=== PATIENT | male | born 1960 | race Caucasian/White ===

== ENCOUNTER 2021-04-06 13:28 | Inpatient (IN) | payer OTHER, SELFPAY ==
[2021-04-06] VITALS (15 sets, daily range): BP systolic 123–158; BP diastolic 66–88; PULSE 78–106; RESP 13–27; TEMP 36.1–36.6; O2SAT 94–100; BMI 31.5
--- NOTE | ~2021-04-06 | CT_ITS ---
EXAMINATION:CT chest high resolution [facility] DATE: 04/07/2021 09:11 INDICATION: Chronic cough. Chronic obstructive pulmonary disease. TECHNIQUE: Computed tomography (CT) of the chest was performed without intravenous contrast. Automate d exposure control and iterative reconstruction technique were employed. The dose-length product (DLP ) was 456.07 mGy-cm. COMPARISON: Chest CT 12/30/2008 FINDINGS: There is severe emphysema. There is mild atelectasis bilaterally. Calcified pulmonary nodul es and calcified hilar and mediastinal lymph nodes are consistent with old granulomatous disease. No pleural effusion. The heart size is normal. No pericardial effusion. Calcifications in the spleen are consistent with old granulomatous disease. There is mild thoracic spondylosis. There is mild chronic anterior wedging of T7 vertebral body. IMPRESSION: 1. Severe emphysema. Reviewed, dictated and finalized at location A. IMPRESSION: 1. Severe emphysema.
--- NOTE | ~2021-04-06 | XR_ITS ---
XR chest 2V DATE: 04/06/2021 15:43 INDICATION: Shortness of breath. History of lung biopsy. COPD. TECHNIQUE: PA and lateral views COMPARISON: 08/24/2010 PA and lateral chest FINDINGS: Bilateral hyperinflation with flattening the diaphragm, consistent with COPD. Chronic mild bibasilar scarring. No pulmonary infiltrate or consolidation, pleural effusion or pulmonary vascular congestion or pneumothorax. Normal heart size. Aortic arch calcification. No hilar or mediastinal enlargement. Prominence of the central pulmonary artery suggests pulmonary hypertension. Diffuse osteopenia. IMPRESSION: COPD and suspected pulmonary hypertension No active pulmonary disease Diffuse osteopenia Reviewed, dictated and finalized at location B.
--- NOTE | 2021-04-06 13:36 | ECG_ITS ---
Measurements Intervals [place] Rate: 67 P: 55 NC: 117 QRS: 65 QRSD: 94 T: 89 QT: 356 QTc: 377 Interpretive Statements SINUS RHYTHM WITH SHORT NC INTERVAL BASELINE ARTIFACT- I, II, III, AVR, AVL, AVF, V1-V6 BORDERLINE ECG Electronically Signed On 04-06-2021 14:11:14 CDT by Kwame Mccullough D.O.
--- NOTE | 2021-04-06 13:36 | ED.SOB ---
HPI - SOB/Dyspnea General Chief Complaint: Shortness of Breath/Dyspnea Stated Complaint: difficulty breathing Time Seen by Provider: 04/06/21 13:36 History of Present Illness HPI Narrative: 60 yo male w/ h/o COPD, HTN presents to the ED for SOB. He has reportedly been SOB for several months. This is associated with Severe TENORIO. He has a chronic cough as well. He sees a spa director. She has prescribed steroids and antibiotics without improvement. No significant change recently. No chest pain, fever, leg swelling. Related Data Home Medications Medication Instructions Recorded Confirmed albuterol sulfate 1.25 mg/3 mL See Rx Instructions .ROUTE .COMPLEX 02/24/20 09/07/20 solution for nebulization magnesium 250 mg tablet See Rx Instructions .ROUTE .COMPLEX 02/24/20 09/07/20 cetirizine [Zyrtec] PO 07/14/20 09/07/20 guaifenesin 600 mg tablet, 600 mg PO BID 07/14/20 09/07/20 extended release 12 hr valsartan 160 mg tablet 160 mg PO DAILY 07/14/20 09/07/20 zinc PO 07/14/20 09/07/20 Allergies Allergy/AdvReac Type Severity Reaction Status Date / Time levofloxacin Allergy Intermediate RASH Verified 09/07/20 10:56 Review of Systems Review of Systems: All systems reviewed & are unremarkable except as noted in HPI and below Constitutional: Constitutional: Denies chills and Denies fever(s) ENT: Reports system reviewed and no additional complaints, except as documented Cardiovascular: Cardiovascular: Denies chest pain Respiratory: Respiratory: Reports cough, Reports dyspnea and Reports wheezing Gastrointestinal: Gastrointestinal: Denies abdominal pain and Denies nausea Genitourinary: Genitourinary: Reports no additional male genitourinary complaints Musculoskeletal: Musculoskeletal: Denies back pain Neurologic: Reports system reviewed and no additional complaints, except as documented [facility] Past Medical History Medical History (Updated 04/06/21 @ 17:25 by Eddie Roa MD) COPD (chronic obstructive pulmonary disease) High cholesterol HTN (hypertension) Hyperglycemia Moderate ankle sprain Right ankle pain Seasonal allergies Shortness of breath Sleep apnea Vision abnormalities Family History Family History Sibling Family history of coronary artery disease Mother Family history of cardiovascular disease Family history of heart disease in male family member before age 55 Social History Social History Smoking status: Never smoker Smokeless tobacco user: chewing tobacco Additional smoking assessment comments: 1 can of chewing tobacco per week for 4 years Alcohol intake: never Gender identity (if verbalized by the patient): Male Exam Const: General: alert Orientation/consciousness: patient oriented x3 Other: mild respiratory distress HENMT: Head: normal to inspection Neck: Neck: normal visual inspection Chest: Chest palpation & inspection: normal inspection of the chest and no tenderness Resp: Effort & Inspection: labored and tachypneic Auscultation: wheezes and diminished lung sounds Cardio: Rate: regular rate Rhythm: regular rhythm GI: Inspection: distended GI Palp: Yes Soft to palpation and No Tenderness to palpation present (GI) Skin: General skin exam: normal color Neuro: General: patient oriented x3, moves all extremities and CN's II-XI intact bilaterally Extrem: General: no edema Course Vital Signs Vital signs: Vital Signs Temperature 36.6 C 04/06/21 13:45 Pulse Rate 85 04/06/21 13:45 Respiratory Rate 23 H 04/06/21 13:45 Blood Pressure 136/88 04/06/21 13:45 Pulse Oximetry 96 04/06/21 13:45 Temperature 36.6 C 04/06/21 13:45 Pulse Rate 78 04/06/21 16:19 Respiratory Rate 22 H 04/06/21 16:19 Blood Pressure 123/73 04/06/21 16:19 Pulse Oximetry 95 04/06/21 16:19 MDM - SOB/Dyspnea MDM Narrative Medical decision
[2021-04-06 13:59] LABS: Basophils Percent Auto 0.1 % (0.2-1.2); Eosinophils Absolute Auto 0.2 K/mm3 (0-0.3); Eosinophils Percent Auto 1.8 % (0-4.4); Hematocrit 48.5 % (42.0-52.0); Hemoglobin 16.2 g/dL (14.0-18.0); Immature Granulocyte Absolute 0.05 K/mm3 (0.00-0.031); Immature Granulocyte Percent A 0.5 % (0-0.5); Lymphocytes Absolute Auto 1.44 K/mm3 (0.9-3.2); Lymphocytes Percent Auto 14.9 % (18.3-44.2); Mean Corpuscular HGB Conc 33.4 g/dl (32-36); Mean Corpuscular Volume 89.8 fl (80-100); Mean Platelet Volume 10.6 fl (7.4-10.4); Monocytes Absolute Auto 0.7 K/mm3 (0.1-0.6); Monocytes Percent Auto 7.5 % (2.6-8.5); Neutrophils Absolute Auto 7.3 K/mm3 (1.3-6.7); Neutrophils Percent Auto 75.2 % (45.5-73.1); Platelet Count Result 151 k/mm3 (150-375); Red Cell Distribution Width 13.3 % (11.5-14.5); White Blood Count 9.7 K/mm3 (4.5-10.0)
[2021-04-06 14:13] LABS: Alanine Aminotransferase 31 U/L (4-50); Albumin Level 4.4 g/dL (3.5-5.1); Alkaline Phosphatase 96 U/L (38-126); Anion Gap 7 mmol/L (8-16); Aspartate Amino Transferase 26 U/L (17-59); Bilirubin,Total 1.1 mg/dL (0.2-1.3); Blood Urea Nitrogen 18 mg/dL (9-20); Calcium 9.8 mg/dL (8.4-10.2); Carbon Dioxide 25 mmol/L (22-30); Chloride 104 mmol/L (98-107); Estimated CRCL calculation 84 ml/min; Estimated Glomerular Filt Rate > 60; Glucose 102 mg/dL (75-110); Potassium 4.5 mmol/L (3.4-5.0); Sodium 136 mmol/L (137-145)
[2021-04-06 14:14] LABS: Anion Gap 7 mmol/L (8-16); Blood Urea Nitrogen 18 mg/dL (9-20); Calcium 9.7 mg/dL (8.4-10.2); Carbon Dioxide 26 mmol/L (22-30); Chloride 104 mmol/L (98-107); Estimated CRCL calculation 84 ml/min; Estimated Glomerular Filt Rate > 60; Glucose 103 mg/dL (75-110); Potassium 4.5 mmol/L (3.4-5.0); Sodium 137 mmol/L (137-145)
[2021-04-06] MEDS: DEXAMETHASONE SOD PHOS INJ 4 MG/ML VIAL 10 MG IV PUSH (14:17)
[2021-04-06] MEDS: ALBUTEROL SULFATE NEB 2.5 MG/0.5 ML INH 10 MG INHALATION (14:20)
[2021-04-06] MEDS: IPRATROPIUM BR 0.02% INH SOLN 0.5 MG/2.5 ML VIAL 1 MG INHALATION (14:20)
[2021-04-06 14:22] LABS: Alveolar/Arterial O2 Gradient 36.9 mmHg; Base Excess ABG 1.8 mEq/l (+/-2.0); Fractional Inspired Oxygen 21 %; HCO3 ABG 25.8 mEq/l (22.0-26.0); Oxygen Content ABG 20.9 %vol (16.0-22.0); Oxygen Saturation ABG 94.1 % (95.0-100.0); Oxyhemoglobin 92.6 % THb (90.0-100.0); PCO2 ABG 38.4 mmHg (35.0-45.0); PO2 ABG 66.8 mmHg (80.0-100.0); PO2 FiO2 Ratio Arterial Blood 3.18 %; Total Hemoglobin 16.1 g/dL (12.0-18.0); pH ABG 7.445 (7.350-7.450)
[2021-04-06 14:22] LABS: NT Pro B Type Natriuretic Pept 63 pg/mL (5-100)
[2021-04-06 14:31] LABS: Device ROOM AIR; Site Drawn RIGHT BRACHIAL
--- NOTE | 2021-04-06 17:30 | PM.IMHP ---
H&P: HPI History of Present Illness Date/Time: 04/06/21 17:30 Chief Complaint: Shortness of breath. Narrative: This is a pleasant 60-year-old male with COPD, hypertension, and hyperlipidemia to the emergency department earlier today via private vehicle from home with complaints of shortness of breath. The patient is a former smoker, up to 2 packs of cigarettes per day for about 25 years before quitting in the . He was diagnosed with COPD within the last couple of years and is followed by Kaley Salazar NP. He has not been satisfied with his quality of life over the past couple of years due to dyspnea and chronic cough and it is to the point where he sometimes has to stop to catch his breath even while walking around the home. He also has a chronic cough which tends to keep him up at night. More recently he has been on oral steroids and antibiotics for worsening symptoms, unfortunately without improvement despite compliance with all of his therapies. He denies fever, chills, sweats, cold and flu symptoms, chest pain, pleuritic pain, orthopnea, PND, lower extremity edema, nausea, vomiting, and diarrhea. No history of cardiac disease or venous thromboembolism. He denies history of sleep apnea however states that he is frequently fatigued in falls asleep at the drop of a hat. Review of Systems Review of Systems: Narrative: Twelve systems were reviewed with pertinent positives and negatives as per HPI. No sick contacts. He denies exposure to those positive for COVID-19. He denies sinus congestion, rhinorrhea, otalgia, odynophagia, and postnasal drip. No GERD symptoms. He denies dysphagia and concerns for aspiration. Cough is nonproductive. Except as documented, all other systems were reviewed and are negative. [facility] Past Medical History Medical History Chronic obstructive pulmonary disease Diverticulitis Status post partial colon resection. Hyperlipidemia Hypertension Seasonal allergies Tobacco use Surgical History Surgical History (Updated 04/06/21 @ 21:55 by Marianne Aguilar PA-C) History of partial colectomy Due to recurrent diverticulitis. Family History Family History Sibling Family history of coronary artery disease Mother Family history of cardiovascular disease Family history of heart disease in male family member before age 55 Social History Social History (Updated 04/06/21 @ 21:58 by Marianne Aguilar PA-C) Social History: The patient lives in [place] with his . They have 3 children. Previously worked at [employer] and reports exposure to silica. 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 He smoked about 2 packs of cigarettes a day for nearly 25 years and quit in the . He has been using chewing tobacco for the last 5 years or so, 1 can lasting up to a week at a time. No alcohol or illicit substance abuse. He designates his Tina as his surrogate decision maker and he wishes to be a full code. Living arrangements: with family Occupation/Education: occupation Meds Home Medications and Allergies Home Medications Medication Instructions Recorded Confirmed Type albuterol sulfate 1.25 mg/3 mL See Rx Instructions .ROUTE .COMPLEX 02/24/20 04/06/21 History solution for nebulization magnesium 250 mg tablet 500 mg PO HS 02/24/20 04/06/21 History cetirizine [Zyrtec] 10 mg PO DAILY 07/14/20 04/06/21 History guaifenesin 600 mg tablet, 1,200 mg PO BID 07/14/20 04/06/21 History extended release 12 hr zinc 50 mg PO DAILY 07/14/20 04/06/21 History fluticasone 250 mcg-salmeterol 50 1 inh INHALATION .COMPLEX #180 ea 09/21/20 04/06/21 Rx mcg/dose blistr powdr for inhalation losartan 100 mg tablet 100 mg PO DAILY #90 tablet 10/19/20 04/06/21 Rx albuterol sulfate 90 mcg/actuation 2 puff INHALATION Q4-6H PRN #22.5 g 11/25/20 04/06/21 Rx aerosol inhaler ergocalciferol (vitamin D2) 1,250 See Rx Instructions .ROUTE 05
[2021-04-06] MEDS: methylPREDNISolone SOD SUCC 125 MG VIAL 60 MG IV PUSH ×2 (18:30→23:03)
--- NOTE | 2021-04-06 19:29 | ECG_ITS ---
Measurements Intervals [place] Rate: 87 P: 83 LA: 134 QRS: 67 QRSD: 94 T: 86 QT: 344 QTc: 415 Interpretive Statements SINUS RHYTHM BORDERLINE T WAVE ABNORMALITY- HIGH LATERAL LEADS BASELINE ARTIFACT- I, II, III, AVR, AVL, AVF, V1, V3-V6 BORDERLINE ECG Electronically Signed On 04-06-2021 20:09:15 CDT by Kwame Mccullough D.O.
--- NOTE | 2021-04-06 19:41 | PC.NURSE ---
Pt reported Left sided chest pressure that comes and goes like spasms , per vorb Dr Roa repeat EKG was ordered and completed. Pt placed on 2 L NC O2 for comfort. Per EDP, okay for pt to go to room 347 after EKG reviewed.
--- NOTE | 2021-04-06 19:45 | ADMGEN ---
This patient, Deyns Mosqueda, was admitted to Medical Room 347-. Patient/family oriented to hospital policies and general routines including ID bracelet, bed and alarms, visiting hours, pain management, procedures, bathroom and other care routines, personal items, smoking policy, room service/diet, and visiting hours. Information on how to activate the Rapid Response Team has been discussed. Patient/Family are encouraged to report perceived risks to care and to ask questions if they do not understand what they are told or what they should do.
[2021-04-06] MEDS: IPRATROPIUM BR 0.02% INH SOLN 0.5 MG/2.5 ML VIAL INHALATION (21:06)
[2021-04-06] MEDS: ALBUTEROL SULFATE NEB 2.5 MG/0.5 ML INH 5 MG INHALATION (21:06)
[2021-04-06] MEDS: PANTOPRAZOLE 40 MG TABLET PO (23:03)
[2021-04-07] VITALS (16 sets, daily range): BP systolic 150–160; BP diastolic 77–90; PULSE 72–110; RESP 20–24; TEMP 36.2–36.4; O2SAT 92–97
--- NOTE | 2021-04-07 03:58 | PCRCNOTE ---
0200 breathing treatment was omitted due to patient being on an apnea link.
[2021-04-07] MEDS: methylPREDNISolone SOD SUCC 125 MG VIAL 60 MG IV PUSH ×4 (05:17→23:29)
[2021-04-07] MEDS: LOSARTAN POTASSIUM 100 MG TABLET PO (08:36)
[2021-04-07] MEDS: ZINC SULFATE 220 MG CAPSULE PO (08:36)
[2021-04-07] MEDS: LORATADINE 10 MG TABLET PO (08:37)
[2021-04-07] MEDS: guaiFENesin 12 HR 600 MG TABCR 1200 MG PO ×2 (08:37→20:36)
[2021-04-07] MEDS: PANTOPRAZOLE 40 MG TABLET PO (08:39)
[2021-04-07] MEDS: ENOXAPARIN 40 MG/0.4 ML SYRINGE SUB-Q (08:45)
[2021-04-07] MEDS: FLUTICASONE PROPIONATE 0.05% NA SPR 16 GM BTL (*BKC) 1 SPRAY NASAL ×2 (09:21→20:35)
[2021-04-07] MEDS: IPRATROPIUM BR 0.02% INH SOLN 0.5 MG/2.5 ML VIAL INHALATION ×3 (09:24→21:03)
[2021-04-07] MEDS: UMECLIDINIUM BROMIDE 62.5 MCG ELLIPTA 1 PUFF INHALATION (09:24)
[2021-04-07] MEDS: ALBUTEROL SULFATE NEB 2.5 MG/0.5 ML INH 5 MG INHALATION ×3 (09:24→21:02)
[2021-04-07] MEDS: FLUTICASONE/SALMETEROL 115-21 MCG INHALER 1 PUFF 2 PUFF INHALATION ×2 (11:38→21:15)
--- NOTE | 2021-04-07 12:24 | PM.IMPN ---
Progress Note: A&P Assessment and Plan (1) COPD exacerbation: Code(s): J44.1 - Chronic obstructive pulmonary disease with (acute) exacerbation Status: Acute Assessment and Plan: Pt continues to be SOB with TENORIO -No cardiac symptoms currently -CT showed severe emphysema; he sees Kaley Salazar FRONT OFFICE SECRETARY outpt -Will continue solumedrol 60mg Q6 as well atrovent, albuterol, advair, and incruse -He states he used to be around chemicals and used to smoke but quit. He was also around 2nd hand smoke as a child. He states he has no genetic abnormalities that cause COPD according to work up from years ago -If he has not improved by tomorrow, may consider consulting pulmonology (2) Shortness of breath: Code(s): R06.02 - Shortness of breath Status: Acute Assessment and Plan: As above (3) Chronic cough: Code(s): R05 - Cough Status: Acute Assessment and Plan: due to above (4) Hypertension: Code(s): I10 - Essential (primary) hypertension Status: Acute Assessment and Plan: Last bp 160/90 prior to home medications tis morning -Continue losartan -Monitor trends and adjust as needed (5) Hyperlipidemia: Code(s): E78.5 - Hyperlipidemia, unspecified Status: Acute Assessment and Plan: Continue simvastatin Time Spent With Patient Time with patient: 25 - 35 minutes Subjective Date/time seen: 04/07/21 12:24 Interval history: Pt is a 60 y/o male here for COPD exacerbation. Pt was seen today and is feeling a bit better but is still having TENORIO and SOB at rest. He has a dry cough occasionally. He has no CP. He had a cardiac cath in 1999 and a stress test in the last couple of years . He denies nausea, vomiting, fevers, chills, abdominal pain, or leg swelling. Pt sees kaley MONTES for his COPD. He has seen others in the past and has had a bunch of work up that showed this wasn't inherited . Review of Systems Review of Systems: All systems reviewed & are unremarkable except as noted in HPI and below Exam Narrative: Exam Narrative: General: Well developed well nourished patient in NAD HEENT: normocephalic Neck: supple Neuro: Alert and oriented x4 CV:RRR. Tele without abnormal reviews Resp:Decreased breath sounds with no wheezing bilaterally. prolonged expiratory stage with elevated RR Abd: Soft, non distended. No pain to palpation. Positive bowel sounds Extremities: No swelling, erythema, or pain to palpation. Objective Data Vital Signs Vital Signs: Vital Signs - 24 hr 04/06/21 13:45 04/06/21 14:01 04/06/21 14:20 Temperature 97.9 F Pulse Rate 82 78 Respiratory Rate 23 H 22 H Blood Pressure 136/88 Pulse Oximetry 96 96 04/06/21 14:27 04/06/21 15:24 04/06/21 16:19 Temperature Pulse Rate 80 85 78 Respiratory Rate 13 24 H 22 H Blood Pressure 143/88 H 150/81 H 123/73 Pulse Oximetry 100 97 95 04/06/21 18:31 04/06/21 19:30 04/06/21 19:39 Temperature Pulse Rate 78 97 89 Respiratory Rate 22 H 24 H 26 H Blood Pressure 123/73 145/66 H 146/81 H Pulse Oximetry 95 96 97 04/06/21 20:00 04/06/21 21:06 04/06/21 21:13 Temperature Pulse Rate 91 91 Respiratory Rate 22 H 18 Blood Pressure Pulse Oximetry 96 95 04/06/21 21:15 04/06/21 21:44 04/06/21 23:30 Temperature 97 F L Pulse Rate 88 103 H 106 H Respiratory Rate 20 22 H Blood Pressure 158/80 H Pulse Oximetry 94 94 04/07/21 00:00 04/07/21 04:00 04/07/21 06:27 Temperature 97.3 F L Pulse Rate 99 72 92 Respiratory Rate 20 Blood Pressure Pulse Oximetry 96 04/07/21 06:52 04/07/21 08:00 04/07/21 08:39 Temperature Pulse Rate 79 Respiratory Rate 20 Blood Pressure 160/90 H Pulse Oximetry 92 04/07/21 09:25 04/07/21 09:35 Temperature Pulse Rate 95 88 Respiratory Rate 20 20 Blood Pressure Pulse Oximetry 92 Intake/Output Intake/Output: Intake & Output 04/04/21 04/05/21 04/06/21
[2021-04-07] MEDS: SIMVASTATIN 10 MG TABLET PO (20:36)
[2021-04-07] MEDS: MAGNESIUM OXIDE 400 MG TABLET PO (20:36)
--- NOTE | 2021-04-07 22:05 | ECHO_ITS ---
Patient Info Name: Denys Mosqueda Age: 60 years : 1960 Gender: Male Ht: 68 in Wt: 207 lbs BSA: 2.15 m2 HR: 100 bpm BP: 150 / 80 mmHg Heart Rhythm: Sinus Rhythm, Tachycardia Technical Quality: Good Exam Date: 04/07/2021 11:08 AM Exam Location: [facility] Pulmonary Patient Status: Inpatient Admit Date: 04/06/2021 Staff Ordering Physician: Marianne Aguilar PA-C Drywall Finisher Foreman: Hardeep Cerna, ERIC, RT Attending Provider: Mikayla Bui MD Referring Physician: Lauren EDWARDS; Exam Type: CA echo doppler w bubble study Study Info Indications I10 - Essential (primary) hypertension R06.02 - Shortness of breath Strain analysis performed. Complete two-dimensional, color flow and Doppler transthoracic echocardiogram is performed with agitated saline. Summary 1. Left ventricular chamber dimension is normal. 2. Left ventricular systolic function is normal, estimated at >70%. 3. There is mildly increased left ventricular wall thickness. 4. The left ventricular diastolic function is grade I diastolic dysfunction. 5. Right atrial chamber dimension is mildly enlarged. 6. There is no aortic valve stenosis. 7. No evidence of interatrial shunt with injection of agitated saline with or without Valsalva. Left Ventricle Left ventricular chamber dimension is normal. Left ventricular systolic function is normal, estimated at >70%. There is mildly increased left ventricular wall thickness. The left ventricular diastolic function is grade I diastolic dysfunction. Global longitudinal strain is normal at -19 %. Right Ventricle Right ventricular chamber dimension is normal. Right ventricular systolic function is normal. Left Atria Left atrial chamber dimension is normal. Right Atria Right atrial chamber dimension is mildly enlarged. Atrial Septum No evidence of interatrial shunt with injection of agitated saline with or without Valsalva. Aortic Valve The aortic valve is not well visualized. There is no aortic valve stenosis. There is no aortic valve regurgitation. Pulmonic Valve The pulmonic valve is not well visualized. Mitral Valve The mitral valve has normal leaflets. There is trace mitral valve regurgitation. Tricuspid Valve The tricuspid valve leaflets are normal. There is trace tricuspid valve regurgitation. Unable to estimate PA systolic pressure due to poor spectral resolution of tricuspid regurgitant jet velocity. Pericardium/Pleural The pericardium appears normal. There is trivial pericardial effusion. Inferior Vena Cava Normal inferior vena cava with >50% collapse upon inspiration consistent with normal right atrial pressure, 5 mmHg. Aorta The aortic root size at the sinus of Valsalva is normal. There is mild aortic atherosclerosis. Left Ventricular Outflow Tract Name Value Normal LVOT 2D LVOT Diameter 1.9 cm LVOT Doppler LVOT Peak Gradient 7 mmHg LVOT Mean Gradient 4 mmHg LVOT VTI 26 cm LVOT VTI/AV VTI Ratio 0.9 LVOT Stroke Vo
[2021-04-08] VITALS (12 sets, daily range): BP systolic 128–143; BP diastolic 61–82; PULSE 80–103; RESP 14–22; TEMP 36.3–36.7; O2SAT 95–97
[2021-04-08] MEDS: IPRATROPIUM BR 0.02% INH SOLN 0.5 MG/2.5 ML VIAL INHALATION ×4 (01:43→21:38)
[2021-04-08] MEDS: ALBUTEROL SULFATE NEB 2.5 MG/0.5 ML INH 5 MG INHALATION ×2 (01:43→07:26)
[2021-04-08] MEDS: methylPREDNISolone SOD SUCC 125 MG VIAL 60 MG IV PUSH (05:15)
[2021-04-08 05:55] LABS: Hematocrit 45.2 % (42.0-52.0); Hemoglobin 14.9 g/dL (14.0-18.0); Mean Corpuscular Volume 90.9 fl (80-100); Mean Platelet Volume 10.5 fl (7.4-10.4); Platelet Count Result 164 k/mm3 (150-375); Red Blood Count 4.97 M/mm3 (4.6-6.20); Red Cell Distribution Width 13.4 % (11.5-14.5); White Blood Count 13.2 K/mm3 (4.5-10.0)
[2021-04-08 06:07] LABS: Anion Gap 9 mmol/L (8-16); Blood Urea Nitrogen 21 mg/dL (9-20); Calcium 9.3 mg/dL (8.4-10.2); Carbon Dioxide 25 mmol/L (22-30); Chloride 102 mmol/L (98-107); Estimated CRCL calculation 84 ml/min; Estimated Glomerular Filt Rate > 60; Glucose 155 mg/dL (75-110); Potassium 4.7 mmol/L (3.4-5.0); Sodium 136 mmol/L (137-145)
[2021-04-08] MEDS: FLUTICASONE/SALMETEROL 115-21 MCG INHALER 1 PUFF 2 PUFF INHALATION (07:27)
[2021-04-08] MEDS: UMECLIDINIUM BROMIDE 62.5 MCG ELLIPTA 1 PUFF INHALATION (07:27)
[2021-04-08] MEDS: guaiFENesin 12 HR 600 MG TABCR 1200 MG PO ×2 (08:41→20:38)
[2021-04-08] MEDS: LOSARTAN POTASSIUM 100 MG TABLET PO (08:41)
[2021-04-08] MEDS: FLUTICASONE PROPIONATE 0.05% NA SPR 16 GM BTL (*BKC) 1 SPRAY NASAL ×2 (08:41→20:37)
[2021-04-08] MEDS: ZINC SULFATE 220 MG CAPSULE PO (08:41)
[2021-04-08] MEDS: LORATADINE 10 MG TABLET PO (08:41)
[2021-04-08] MEDS: ERGOCALCIFEROL 50,000 UNIT CAPSULE 50000 UNITS BY MOUTH (08:41)
[2021-04-08] MEDS: PANTOPRAZOLE 40 MG TABLET PO (08:41)
[2021-04-08] MEDS: ENOXAPARIN 40 MG/0.4 ML SYRINGE SUB-Q (08:41)
[2021-04-08] MEDS: ALPRAZolam (*CRX) 0.5 MG TABLET PO ×2 (10:15→16:33)
--- NOTE | 2021-04-08 11:29 | PM.IMPN ---
Progress Note: A&P Assessment and Plan (1) COPD exacerbation: Code(s): J44.1 - Chronic obstructive pulmonary disease with (acute) exacerbation Status: Acute Assessment and Plan: Pt continues to be SOB with TENORIO -No cardiac symptoms currently -CT showed severe emphysema; he sees Kaley Salazar CARDIOVASCULAR PHYSICIAN ASSISTANT outpt -Will continue solumedrol 60mg Q6 as well atrovent, albuterol, advair, and Incruse -He states he used to be around chemicals and used to smoke but quit. He was also around 2nd hand smoke as a child. He states he has no genetic abnormalities that cause COPD according to work up from years ago -pulmonology consulted, records requested -pt now off o2 (2) Shortness of breath: Code(s): R06.02 - Shortness of breath Status: Acute Assessment and Plan: As above -May consider outpt stress test -Echo:1. Left ventricular chamber dimension is normal. 2. Left ventricular systolic function is normal, estimated at >70%. 3. There is mildly increased left ventricular wall thickness. 4. The left ventricular diastolic function is grade I diastolic dysfunction. 5. Right atrial chamber dimension is mildly enlarged. 6. There is no aortic valve stenosis. 7. No evidence of interatrial shunt with injection of agitated saline with or without Valsalva. -Pt did have a stress in the test but it was a few years back. (3) Chronic cough: Code(s): R05 - Cough Status: Acute Assessment and Plan: due to above (4) Hypertension: Code(s): I10 - Essential (primary) hypertension Status: Acute Assessment and Plan: Last bp 128/61 -Continue losartan -Monitor trends and adjust as needed (5) Hyperlipidemia: Code(s): E78.5 - Hyperlipidemia, unspecified Status: Acute Assessment and Plan: Continue simvastatin Subjective Date/time seen: 04/08/21 11:29 Interval history: Pt is a 60 y/o male here for COPD exacerbation. Pt was seen today and is feeling a bit better but is still having TENORIO and SOB at rest. He says his o2 is >88% but that he can't 'get enough oxygen in'. He has a dry cough occasionally. He has no CP. He had a cardiac cath in 1999 and a stress test in the last couple of years . He denies nausea, vomiting, fevers, chills, abdominal pain, or leg swelling. Pt sees kaley CARDIOVASCULAR PHYSICIAN ASSISTANT for his COPD. He has seen others in the past and has had a bunch of work up that showed this wasn't inherited . He did not think the xanax helped. Exam Narrative: Exam Narrative: General: Well developed well nourished patient in NAD HEENT: normocephalic Neck: supple Neuro: Alert and oriented x4 CV:RRR Resp:Decreased breath sounds with no wheezing bilaterally. prolonged expiratory stage with elevated RR Abd: Soft, non distended. No pain to palpation. Positive bowel sounds Extremities: No swelling, erythema, or pain to palpation. Objective Data Vital Signs Vital Signs: Vital Signs - 24 hr 04/07/21 12:00 04/07/21 14:00 04/07/21 14:27 Temperature 97.5 F L Pulse Rate 106 H 110 H 102 H Respiratory Rate 24 H 24 H Blood Pressure 150/79 H Pulse Oximetry 97 04/07/21 14:37 04/07/21 20:30 04/07/21 20:49 Temperature 97.1 F L Pulse Rate 102 H 81 Respiratory Rate 24 H 20 Blood Pressure 151/77 H Pulse Oximetry 95 94 04/07/21 21:05 04/07/21 21:18 04/08/21 01:44 Temperature Pulse Rate 80 88 80 Respiratory Rate 22 H 20 22 H Blood Pressure Pulse Oximetry 95 04/08/21 05:12 04/08/21 07:28 04/08/21 07:31 Temperature 97.4 F L Pulse Rate 99 86 Respiratory Rate 22 H 22 H Blood Pressure 128/61 Pulse Oximetry 97 95 Intake/Output Intake/Output: Intake & Output 04/05/21 04/06/21 04/07/21 04/08/21 23:59 23:59 23:59 23:59 Intake Total 2620 490 Output Total 350 3700 400 Balance -350 -1080 90 Meds/Results Medications: Active Medications Generic Name Dose Route Start Last Admin Trade Name Freq PRN
--- NOTE | 2021-04-08 12:29 | PM.CNPUL ---
Assessment and Plan Assessment and plan (1) COPD exacerbation: Code(s): J44.1 - Chronic obstructive pulmonary disease with (acute) exacerbation Status: Acute Assessment and Plan: While the patient is appearing to have a COPD exacerbation he is not overtly bronchospastic. His ongoing shortness of breath may be due to multiple things including debilitation and significant weight gain. He has gained about 30 lb if not more according to his just in the past 2 years and someone with severe COPD this can cause significant shortness of breath debilitation. There also appears to be a significant anxiety component and I am not sure if this is due to the presence of systemic steroids or due to an underlying condition. My recommendations are the following - discontinue systemic steroids - start Pulmicort 1 mg nebulized q.12 hours - continue ipratropium 0.5 mg q.6 hours - change albuterol to 2.5 mg q.6 hours p.r.n. - start Xanax scheduled 0.5 mg b.i.d. and titrate up to 1 mg b.i.d. as tolerated. -start benzotate 200 mg p.o. t.i.d. for cough suppression - needs to restart pulmonary rehabilitation - encouraged significant weight gain which will be very helpful to improving his symptoms. - Consider switching his inhaler therapy to all nebulized therapy upon discharge and upon coverage by insurance company. (2) Anxiety: Code(s): F41.9 - Anxiety disorder, unspecified Status: Acute History of Present Illness History of Present Illness Consult date: 04/08/21 Chief complaint: COPD exacerbation Narrative: This is a 60-year-old obese male who presents with COPD exacerbation. The patient appears very anxious and nervous but complains of shortness of breath and cough going on for the past few weeks. In fact he was prescribed 19 days of prednisone according to him and antibiotics with no improvement in symptoms. His CT of the chest done here shows no pulmonary embolism no signs of pneumonia or interstitial lung disease but does show extensive bilateral emphysematous changes more prominent in the upper lobes the emphysematous changes are wang acinar. He denies productive cough, fever, chills or night sweats. 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 He quit smoking many years ago but has a long smoking history. The last pulmonary function test available in the chart was from in [facility] a period it showed an FEV1 of 34% of predicted with improvement in post bronchodilator volumes. This indicates that he had severe airflow obstruction with hyperinflation and moderately D free decreased diffusion capacity. This is very consistent with COPD and a concomitant asthma component cannot be ruled out. His home inhaler regimen includes increase the lip the 1 puff daily along with a generic form of Advair 250/50 mcg 1 puff b.i.d.. He is compliant with his medications and appears to have good inhaler technique. He also admits to approximately a 30 lb or more weight gain over the past 2 years. Review of Systems Review of Systems: All systems reviewed & are unremarkable except as noted in HPI and below PMFSH Past Medical History Medical History (Updated 04/08/21 @ 12:35 by Catherine Borja MD) Chronic obstructive pulmonary disease Diverticulitis Status post partial colon resection. Hyperlipidemia Hypertension Seasonal allergies Surgical History Surgical History (Updated 04/06/21 @ 21:55 by Marianne Aguilar PA-C) History of partial colectomy Due to recurrent diverticulitis. Family History Family History Sibling Family history of coronary artery disease Mother Family history of cardiovascular disease Family history of heart disease in male family member before age 55 Social History Social History (Updated 04/06/21 @ 21:58 by Marianne Aguilar PA-C) Social History: The patient lives in [place] with his . The
[2021-04-08] MEDS: BENZONATATE 100 MG CAPSULE 200 MG PO ×2 (12:38→16:33)
[2021-04-08] MEDS: MAGNESIUM OXIDE 400 MG TABLET PO (20:38)
[2021-04-08] MEDS: SIMVASTATIN 10 MG TABLET PO (20:38)
[2021-04-08] MEDS: BUDESONIDE RESPULE NEB 0.5 MG/2 ML AMP 1 MG INHALATION (21:38)
[2021-04-09] VITALS (12 sets, daily range): BP systolic 127–154; BP diastolic 72–86; PULSE 80–110; RESP 16–18; TEMP 36.1; O2SAT 87–95
[2021-04-09] MEDS: IPRATROPIUM BR 0.02% INH SOLN 0.5 MG/2.5 ML VIAL INHALATION ×3 (03:30→13:25)
[2021-04-09] MEDS: ALBUTEROL SULFATE NEB 2.5 MG/0.5 ML INH INHALATION (03:30)
[2021-04-09 06:23] LABS: Hematocrit 45.6 % (42.0-52.0); Mean Corpuscular HGB Conc 32.9 g/dl (32-36); Mean Corpuscular Hemoglobin 30.2 pg (26-34); Mean Corpuscular Volume 91.9 fl (80-100); Mean Platelet Volume 10.6 fl (7.4-10.4); Platelet Count Result 176 k/mm3 (150-375); Red Blood Count 4.96 M/mm3 (4.6-6.20); Red Cell Distribution Width 13.5 % (11.5-14.5); White Blood Count 11.6 K/mm3 (4.5-10.0)
[2021-04-09 06:40] LABS: Anion Gap 6 mmol/L (8-16); Blood Urea Nitrogen 24 mg/dL (9-20); Calcium 8.9 mg/dL (8.4-10.2); Carbon Dioxide 28 mmol/L (22-30); Chloride 102 mmol/L (98-107); Estimated CRCL calculation 84 ml/min; Estimated Glomerular Filt Rate > 60; Glucose 108 mg/dL (75-110); Potassium 4.9 mmol/L (3.4-5.0); Sodium 136 mmol/L (137-145)
[2021-04-09] MEDS: BUDESONIDE RESPULE NEB 0.5 MG/2 ML AMP 1 MG INHALATION (07:10)
[2021-04-09] MEDS: BENZONATATE 100 MG CAPSULE 200 MG PO ×3 (08:16→17:55)
[2021-04-09] MEDS: FLUTICASONE PROPIONATE 0.05% NA SPR 16 GM BTL (*BKC) 1 SPRAY NASAL (08:16)
[2021-04-09] MEDS: ALPRAZolam (*CRX) 0.5 MG TABLET PO ×2 (08:16→17:57)
[2021-04-09] MEDS: PANTOPRAZOLE 40 MG TABLET PO (08:17)
[2021-04-09] MEDS: ENOXAPARIN 40 MG/0.4 ML SYRINGE SUB-Q (08:17)
[2021-04-09] MEDS: guaiFENesin 12 HR 600 MG TABCR 1200 MG PO (08:17)
[2021-04-09] MEDS: ZINC SULFATE 220 MG CAPSULE PO (08:17)
[2021-04-09] MEDS: LOSARTAN POTASSIUM 100 MG TABLET PO (08:17)
[2021-04-09] MEDS: LORATADINE 10 MG TABLET PO (08:17)
--- NOTE | 2021-04-09 10:22 | PM.IMPN ---
Progress Note: A&P Assessment and Plan (1) COPD exacerbation: Code(s): J44.1 - Chronic obstructive pulmonary disease with (acute) exacerbation Status: Acute Assessment and Plan: - continues to have bronchospastic coughing fits, described an episode he had yesterday that forced him to pause his meal as he was concerned about aspiration with the coughing fit. - persistent ongoing shortness of breath may be due to multiple things including worsening emphysema, inhalant particles at work and prior work, debilitation and significant weight gain. -gained about 30 lb if not more according to his just in the past 2 years - possible anxiety component, he is concerned of the COPD worsening and needing a lung transplant . He also had a lung cancer diagnosis in the past that resolved without surgery, that he still thinks about. - superintendent communications discontinued systemic steroids yesterday - continue Pulmicort 1 mg nebulized q.12 hours - continue ipratropium 0.5 mg q.6 hours - continue albuterol to 2.5 mg q.6 hours p.r.n. he has his rescue inhaler at bedside - continue Xanax 1 mg b.i.d. - continue benzotate 200 mg p.o. t.i.d. for cough suppression - needs to restart pulmonary rehabilitation after discharge - follow-up with primary care provider, superintendent communications, crystal attacher. - encouraged significant weight loss which may improve symptoms - superintendent communications may switch his inhaler therapy to all nebulized therapy upon discharge and upon coverage by insurance company. (2) Anxiety: Code(s): F41.9 - Anxiety disorder, unspecified Status: Acute Assessment and Plan: patient was not on anti anxiety medication at home he was started on alprazolam b.i.d. low-dose dose was increased yesterday on April 08 patient does not seem anxious or agitated at all today. he has the usual hand tremors due to the high-dose level of steroids will continue to monitor (3) Shortness of breath: Code(s): R06.02 - Shortness of breath Status: Acute Assessment and Plan: Ordered home O2 study. needs a sleep study completed. he is to follow-up with superintendent communications and crystal attacher after discharge. ECHO on 04/07/2021 showed: Left ventricular chamber dimension is normal. Left ventricular systolic function is normal, estimated at >70%. left ventricular diastolic function is grade I diastolic dysfunction. no valvular disease and no pericardial effusion. needs to return to pulmonary rehab. -No cardiac symptoms currently - chronic cough -CT showed severe emphysema, needs to see a superintendent communications on a regular basis , every 3-6 months. 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 He used to smoke but quit. Was around 2nd hand smoke as a child. He continues to be around secondhand smoke, as his coworkers continue to smoke. He states he has no genetic abnormalities that cause COPD according to work up from years ago. - Needs to continue with visits to superintendent communications every 3-6 months. - Patient is off supplemental oxygen, but feels like he needs oxygen at times, especially during prolonged coughing fits. -Home O2 study ordered. (4) Hyperlipidemia: Code(s): E78.5 - Hyperlipidemia, unspecified Status: Acute Assessment and Plan: Continue simvastatin Advised the patient to follow-up with a crystal attacher (5) Hypertension: Code(s): I10 - Essential (primary) hypertension Status: Acute Assessment and Plan: Last BP 142/76 HR 83-98 regular rate/rhythm -Continue losartan -Monitor trends and adjust as needed -Advised the patient to follow-up with a crystal attacher as he may need Cardiac Evaluation, with a possible outpatient stress test. He stated he has not had any cardiac
--- NOTE | 2021-04-09 11:09 | PM.PNPUL ---
Progress Note: A&P Assessment and Plan (1) Chronic cough: Code(s): R05 - Cough Status: Acute (2) COPD exacerbation: Code(s): J44.1 - Chronic obstructive pulmonary disease with (acute) exacerbation Status: Acute Assessment and Plan: Anxiety and obesity are affecting his dyspnea and COPD. - continue Xanax 0.5 mg PO bid - continue home Spiriva + Wixela inhalers with proper technique - advised to use spacer/chamber with albuterol inhaler - pulmonary rehab will be very helpful and has been ordered - agree with home O2 as outpatient. - encouraged to loose weight - needs outpatient sleep study to r/o underlying MARY if not already done - should take a couple of weeks off from work - no need for systemic steroids or antibiotics as outpatient for now. Just finished course of antibiotics about 1 month ago and he has no signs or symptoms or acute bronchitis or pneumonia. - f/u with HOTEL SERVICE MANAGER Kaley Villalobos as outpatient or our office. - can be discharged home from [facility] (3) Anxiety: Code(s): F41.9 - Anxiety disorder, unspecified Status: Acute Subjective Date/time seen: 04/09/21 11:09 Interval history: Abdoul is feeling a lot better today since stopping systemic steroids and starting an anxiolytic. Also found out that his inhaler techniques at home were not proper and he was instructed on proper technique. Review of Systems Review of Systems: All systems reviewed & are unremarkable except as noted in HPI and below Exam Const: General: cooperative, healthy appearing, no acute distress, alert, awake, Physically active and anxious Nutritional Appearance: obese Orientation/consciousness: oriented to person, oriented to place, oriented to time and patient oriented x3 HENMT: Head: normal to inspection and normocephalic Eyes: General: appearance normal, both eyes and all related structures Neck: Neck: normal visual inspection, trachea midline and supple Resp: Effort & Inspection: normal respiratory effort and able to speak in complete sentences Auscultation: no crackles, no rales, no rhonchi, no wheezes and diminished lung sounds (moderate bilateral air entry without evidence of severe bronchoscospasm ) bilateral Cardio: Jugular venous distension: no JVD Palpation: normal PMI Rate: regular rate Rhythm: regular rhythm Heart sounds: S1 normal heart sound present and S2 normal heart sound present GI: Inspection: normal to inspection Auscultation: normal bowel sounds Skin: General skin exam: normal color and no rashes or lesions noted Neuro: General: oriented to person, oriented to place, oriented to time and patient oriented x3 Cognition (Neuro): normal cognition Speech: normal speech Psych: Appearance: grossly normal and well kempt Mental Status: mental status grossly normal Objective Data Vital Signs Vital Signs: Vital Signs - 24 hr 04/08/21 13:12 04/08/21 13:18 04/08/21 14:42 Temperature 36.3 C L Pulse Rate 89 89 103 H Respiratory Rate 20 20 18 Blood Pressure 143/82 H Pulse Oximetry 95 04/08/21 21:39 04/08/21 21:40 04/08/21 21:42 Temperature 36.7 C Pulse Rate 95 95 Respiratory Rate 18 14 Blood Pressure 142/76 H Pulse Oximetry 95 95 04/08/21 21:55 04/09/21 03:31 04/09/21 03:39 Temperature Pulse Rate 98 80 83 Respiratory Rate 18 18 18 Blood Pressure Pulse Oximetry 04/09/21 07:13 04/09/21 07:25 04/09/21 09:00 Temperature 36.1 C L Pulse Rate 86 86 102 H Respiratory Rate 18 18 18 Blood Pressure 154/84 H Pulse Oximetry 94 Intake/Output Intake/Output: Intake & Output 04/06/21 04/07/21 04/08/21 04/09/21 23:59 23:59 23:59 23:59 Intake Total 2620 1520 300 Output Total 350 3700 2100 700 Balance -350 -1080 -580 -400 Meds/Results Medications: Active Medications Generic Name Dose Route Start Last Admin Trade Name Vishnuq PRN Reason Stop Dose Admin Albuterol 2.5 mg 04/08/21 12:19 04/09/21 03:30 Albuter
--- NOTE | 2021-04-09 17:07 | HOMEO2EVAL ---
Evaluation was performed at [facility] Home Oxygen Evaluation RC: Home Oxygen (O2) Evaluation Start: 04/09/21 10:45 Freq: ONCE Status: Active Protocol: RPE Activity Type Activity Date Activity User E-Sign Co-Sign Detail Recorded Client Recorded Date Recorded By Document 04/09/21 16:30 [email or web address] [email or web address] 04/09/21 17:07 RAY Document 04/09/21 16:33 RAY [email or web address] 04/09/21 17:07 RAY Document 04/09/21 16:35 RAY [email or web address] 04/09/21 17:07 RAY Document 04/09/21 16:45 RAY [email or web address] 04/09/21 17:07 RAY 04/09/21 04/09/21 04/09/21 16:30 16:33 16:35 Home O2 Evaluation Test Phase Resting Exercise Exercise Oxygen Delivery Room Air Room Air Nasal Cannula Oxygen Flow Rate (L/min) 1 Pulse Oximetry (90-100 %) 94 87 L 92 Pulse Rate (60-100 beats/min) 94 110 H Ambulation Distance (feet) 400 Home Oxygen Evaluation Comments PT REQUIRES 1 L WITH EXERTION Treatment Charges O2 Evaluation - Inpatient 04/09/21 16:45 Home O2 Evaluation Test Phase Resting Oxygen Delivery Room Air Oxygen Flow Rate (L/min) Pulse Oximetry (90-100 %) 94 Pulse Rate (60-100 beats/min) 95 Ambulation Distance (feet) Home Oxygen Evaluation Comments Treatment Charges
--- NOTE | 2021-04-09 17:11 | PCRCNOTE ---
HOME O2 EVAL DONE, SET UP WITH [facility], TANK IN ROOM, PT AWARE TO CALL DME UPON D/C FOR DELIVERY. FAXED APAPERWORK TO DME. RN AWARE.
--- NOTE | 2021-04-09 19:26 | PM.DS ---
DS: Admitting Diagnosis Admitting Diagnosis Admitting Diagnosis: SOB , COPD exacerbation DS: Discharge Diagnosis Discharge Diagnosis (1) COPD exacerbation: Code(s): J44.1 - Chronic obstructive pulmonary disease with (acute) exacerbation Status: Acute Assessment and Plan: - coughing improved. -treating anxiety - finished yarn examiner discontinued systemic steroids yesterday - continue Pulmicort 1 mg nebulized q.12 hours - continue ipratropium 0.5 mg q.6 hours - continue albuterol to 2.5 mg q.6 hours p.r.n. he has his rescue inhaler at bedside - continue Xanax 1 mg TID per [employer] - continue benzotate 200 mg p.o. t.i.d. for cough suppression - needs to restart pulmonary rehabilitation after discharge - follow-up with primary care provider, finished yarn examiner, clerk supervisor. - encouraged significant weight loss which may improve symptoms - finished yarn examiner continued his inhaler therapy upon discharge due to coverage by insurance company. (2) Anxiety: Code(s): F41.9 - Anxiety disorder, unspecified Status: Acute Assessment and Plan: patient was not on anti anxiety medication at home he was started on alprazolam b.i.d. low-dose dose was increased yesterday on April 08 to TID patient does not seem anxious or agitated at all today. he has the usual hand tremors due to the high-dose level of steroids (3) Shortness of breath: Code(s): R06.02 - Shortness of breath Status: Acute Assessment and Plan: Ordered home O2 study - found to need 1 L O2 with activity needs a sleep study completed after discharge per PCP he is to follow-up with finished yarn examiner and clerk supervisor after discharge. ECHO on 04/07/2021 showed: Left ventricular chamber dimension is normal. Left ventricular systolic function is normal, estimated at >70%. left ventricular diastolic function is grade I diastolic dysfunction. no valvular disease and no pericardial effusion. needs to return to pulmonary rehab. -No cardiac symptoms currently - chronic cough -CT showed severe emphysema, needs to see a finished yarn examiner on a regular basis , every 3-6 months. - continue atrovent, albuterol, advair, and Incruse - work may definitely be a contributing factor He states he has no genetic abnormalities that cause COPD according to work up from years ago. - Needs to continue with visits to finished yarn examiner every 3-6 months. -Home O2 ordered and supplied (4) Hyperlipidemia: Code(s): E78.5 - Hyperlipidemia, unspecified Status: Acute Assessment and Plan: Continue simvastatin Advised the patient to follow-up with a clerk supervisor (5) Hypertension: Code(s): I10 - Essential (primary) hypertension Status: Acute Assessment and Plan: Last BP 142/76 HR 83-98 regular rate/rhythm -Continue losartan -Monitor trends and adjust as needed -Advised the patient to follow-up with a clerk supervisor as he may need Cardiac Evaluation, with a possible outpatient stress test. He stated he has not had any cardiac workup in over 3 years. DS: Summary Hospital Course Hospital Course: Steroids, Neb treatments, Medication therapy, [employer] consult, improved, discharged to home to F/U with PCP and Specialist Time Spent with Patient Time attestation: Total time spent providing and/or coordinating discharge services: 60 minutes Exam Narrative: Exam Narrative: General: Well developed well nourished patient in NAD HEENT: normocephalic Neck: supple Neuro: Alert and oriented x4 CV:RRR Resp:Clear sounds in all lobes heard, slightly diminished breath sounds with no wheezing bilaterally. Abd: Soft, non distended. No pain to palpation. Positive bowel sounds Extremities: No swelling, erythema, or pain to palpation. Const: General: cooperative, healthy appearing, no acute distress, alert, awake, Physically active and anxious (tremors - possibly related to steroids); No acute distress, in distress or confusion Nutritional
== END 2021-04-09 18:45 | disposition home or self-care (01) | DRG 192 ==
LOC: ANHED 17:25 → ANH3MED 18:30
PROVIDERS: Physician Assistant; Admitting Provider Family Medicine; Emergency Provider Emergency Medicine; PCP Emergency Medicine; Visit Provider Nurse Practitioner
DX: J44.1 Chronic obstructive pulmonary disease with (acute) exacerbation (principal); I10 Essential (primary) hypertension; E78.5 Hyperlipidemia, unspecified; F17.220 Nicotine dependence, chewing tobacco, uncomplicated; F41.9 Anxiety disorder, unspecified; Z79.899 Other long term (current) drug therapy
CPT/HCPCS: 36415; 36600; 71046; 71250; 80048; 80053; 82805; 83880; 84443; 85025; 85027; 93005; 93306; 94618; 94640; 94762; 96372; 96374; 96375; 96376; 99285; A9270; G0378; J1100; J1650; J2930

== ENCOUNTER 2021-04-12 16:33 | Emergency (ER) | payer OTHER, SELFPAY ==
[2021-04-12] VITALS (8 sets, daily range): BP systolic 120–144; BP diastolic 71–89; PULSE 71–94; RESP 16–25; TEMP 36.6; O2SAT 95
--- NOTE | ~2021-04-12 | CT_ITS ---
EXAMINATION: CT BRAIN W/O DATE: 04/12/2021 19:42 INDICATION: Confusion. TECHNIQUE: Computed tomography (CT) of the head was performed without intravenous contrast. The dose- length product was 1059.33 mGy-cm. Automated exposure control and iterative reconstruction technique were employed. COMPARISON: 02/27/2009 FINDINGS: Normal brain parenchymal volume for age. Normal banks-white differentiation. No acute intrac ranial hemorrhage, infarction, mass or mass effect. No ventriculomegaly or midline shift. Midline sagittal images demonstrate a normal corpus callosum, c raniovertebral junction and sella turcica. Basilar cisterns are patent. Paranasal sinuses and mastoids are pneumatized. No depressed skull fractures. IMPRESSION: 1. No acute intracranial abnormality. Reviewed, dictated and finalized at location A.
--- NOTE | ~2021-04-12 | XR_ITS ---
XR chest 1V portable 04/12/2021 19:35 Indication: Confusion. Dyspnea. COPD. Procedure: AP portable chest Comparison: AP portable chest Findings: There are bibasilar infiltrates. Heart size normal. There are emphysematous changes. No sig nificant effusion or pneumothorax. No acute osseous abnormality. Impression: 1: Bibasilar infiltrates which may represent atelectasis/scarring and/or developing pneumonia. Reviewed, dictated and finalized at location A. Impression: 1: Bibasilar infiltrates which may represent atelectasis/scarring and/or develo ping pneumonia.
--- NOTE | 2021-04-12 16:43 | ECG_ITS ---
Measurements Intervals [place] Rate: 93 P: 69 NJ: 128 QRS: 59 QRSD: 94 T: 87 QT: 324 QTc: 404 Interpretive Statements SINUS RHYTHM NONSPECIFIC ST & T-WAVE ABNORMALITY- ANTEROLAT/HIGH LAT LEADS BASELINE WANDER- V2-V6 BORDERLINE ECG Electronically Signed On 04-12-2021 20:27:14 CDT by Kwame Mccullough D.O.
[2021-04-12 17:00] LABS: Basophils Percent Auto 0.4 % (0.2-1.2); Eosinophils Absolute Auto 0.2 K/mm3 (0-0.3); Eosinophils Percent Auto 2.4 % (0-4.4); Hematocrit 46.3 % (42.0-52.0); Hemoglobin 15.3 g/dL (14.0-18.0); Immature Granulocyte Absolute 0.33 K/mm3 (0.00-0.031); Lymphocytes Absolute Auto 1.48 K/mm3 (0.9-3.2); Mean Corpuscular Hemoglobin 30.5 pg (26-34); Mean Corpuscular Volume 92.2 fl (80-100); Mean Platelet Volume 10.5 fl (7.4-10.4); Monocytes Absolute Auto 0.7 K/mm3 (0.1-0.6); Monocytes Percent Auto 8.3 % (2.6-8.5); Neutrophils Absolute Auto 5.5 K/mm3 (1.3-6.7); Neutrophils Percent Auto 66.9 % (45.5-73.1); Platelet Count Result 221 k/mm3 (150-375); Red Blood Count 5.02 M/mm3 (4.6-6.20); Red Cell Distribution Width 13.3 % (11.5-14.5); White Blood Count 8.2 K/mm3 (4.5-10.0)
[2021-04-12 17:10] LABS: Alanine Aminotransferase 32 U/L (4-50); Albumin Level 3.8 g/dL (3.5-5.1); Alkaline Phosphatase 127 U/L (38-126); Anion Gap 2 mmol/L (8-16); Aspartate Amino Transferase 26 U/L (17-59); Bilirubin,Total 0.4 mg/dL (0.2-1.3); Blood Urea Nitrogen 19 mg/dL (9-20); Calcium 8.3 mg/dL (8.4-10.2); Carbon Dioxide 29 mmol/L (22-30); Chloride 105 mmol/L (98-107); Estimated CRCL calculation 93 ml/min; Estimated Glomerular Filt Rate > 60; Glucose 128 mg/dL (75-110); Potassium 4.2 mmol/L (3.4-5.0); Sodium 136 mmol/L (137-145)
--- NOTE | 2021-04-12 18:52 | ED.AMS ---
HPI - Altered Mental Status General Chief Complaint: Altered Mental Status Stated Complaint: mental status changes s/p discharge Time Seen by Provider: 04/12/21 18:32 Source: patient, family and RN notes reviewed Mode of arrival: ambulatory Limitations: no limitations History of Present Illness HPI narrative: Patient is 60 years old brought to the emergency room by his because of confusion over the last 4 days. The is telling me that patient unable to stay awake, fall asleep during conversation, wobbly, unsteady while walking, confused, slurred speech cannot take care of himself, cannot feed himself, cannot take shower without medical office receptionist assistant. The above symptoms started few hours after discharge from our hospital 4 days ago. Patient denies any fever, chills, nausea, vomiting. Patient went to [facility] and underwent blood work-up, chest x-ray and CT scan of the chest and then discharged home. Dr. Jeter advised the patient to come to [facility] for further evaluation. History of hypertension, hyperlipidemia, COPD not on oxygen, denies taking blood thinner, patient is full code. The patient and his denied having similar symptoms before. Patient been vaccinated for COVID-19, [employer], weeks ago. Related Data Home Medications Medication Instructions Recorded Confirmed albuterol sulfate 1.25 mg/3 mL See Rx Instructions .ROUTE .COMPLEX 02/24/20 04/06/21 solution for nebulization magnesium 250 mg tablet 500 mg PO HS 02/24/20 04/06/21 cetirizine [Zyrtec] 10 mg PO DAILY 07/14/20 04/06/21 guaifenesin 600 mg tablet, 1,200 mg PO BID 07/14/20 04/06/21 extended release 12 hr zinc 50 mg PO DAILY 07/14/20 04/06/21 Incruse Ellipta 1 inh INHALATION DAILY 04/06/21 04/06/21 simvastatin 10 mg PO HS 04/06/21 04/06/21 Allergies Allergy/AdvReac Type Severity Reaction Status Date / Time levofloxacin Allergy Intermediate RASH Verified 04/12/21 18:23 Review of Systems Review of Systems: Narrative: CONSTITUTIONAL: Denies fever, chills, or sweats. EYES: Denies visual changes, redness, or discharge. ENT: Denies rhinorrhea, congestion, sore throat, or otalgia. CARDIOVASCULAR: Denies chest pain, palpitations, or edema. RESPIRATORY: Denies cough or dyspnea. GASTROINTESTINAL: Denies abdominal pain, nausea, vomiting, or diarrhea. GENITOURINARY: Denies dysuria or hematuria. SKIN: Denies rash or itching. MUSCULOSKELETAL: Denies back pain, joint pain, or myalgia. NEUROLOGIC: Denies headache, numbness, or weakness. PSYCHIATRIC: Denies anxiety or depression. PMFSH Past Medical History Medical History Chronic obstructive pulmonary disease Diverticulitis Status post partial colon resection. Hyperlipidemia Hypertension Seasonal allergies Surgical History Surgical History History of partial colectomy Due to recurrent diverticulitis. Family History Family History Sibling Family history of coronary artery disease Mother Family history of cardiovascular disease Family history of heart disease in male family member before age 55 Social History Social History Social History: The patient lives in [place] with his . They have 3 children. Previously worked at [employer] and reports exposure to silica. 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 He smoked about 2 packs of cigarettes a day for nearly 25 years and quit in the . He has been using chewing tobacco for the last 5 years or so, 1 can lasting up to a week at a time. No alcohol or illicit substance abuse. He designates his Tina as his surrogate decision maker and he wishes to be a full code. Exam Narrative: Exam Narrative: General appearance: Well-developed, well-nourished Skin: Normal color, 1+ edema lower extremity bilaterally Head: Normocephalic, no
[2021-04-12 19:23] LABS: INR 0.9; Partial Thromboplastin Time 24.2 SECONDS (22.3-36.8)
[2021-04-12 19:25] LABS: Alveolar/Arterial O2 Gradient 32.2 mmHg; Base Excess ABG 1.9 mEq/l (+/-2.0); Device ROOM AIR; Fractional Inspired Oxygen 21 %; HCO3 ABG 26.8 mEq/l (22.0-26.0); Modified Allen's Test Pass; Oxygen Content ABG 20.2 %vol (16.0-22.0); Oxygen Saturation ABG 93.5 % (95.0-100.0); Oxyhemoglobin 92.7 % THb (90.0-100.0); PCO2 ABG 42.5 mmHg (35.0-45.0); PO2 ABG 66.6 mmHg (80.0-100.0); PO2 FiO2 Ratio Arterial Blood 3.17 %; Site Drawn RIGHT RADIAL; Total Hemoglobin 15.5 g/dL (12.0-18.0); pH ABG 7.417 (7.350-7.450)
[2021-04-12 19:26] LABS: Creatine Kinase 33 U/L (55-170)
[2021-04-12 19:33] LABS: Add Urine Microscopic? YES; Appearance Urine Clear (Clear); Bilirubin Urine Negative (Negative); Blood Urine Negative (Negative); Color Urine Yellow (Yellow); Glucose Urine UA Negative (Negative); Ketones Urine Negative (Negative); Leukocyte Esterase Ur Trace LEU/UL (Negative); Nitrate Urine Negative (Negative); Protein Urine Negative (Negative); RBC Urine 0-2 /hpf (0-2); Specific Grav Ur 1.023 (1.001-1.035); Squamous Epithelial Cell Urine Rare /hpf (Few); Urobilinogen Urine Negative mg/dL (<2.0)
[2021-04-12 19:38] LABS: Troponin I < 0.012 ng/mL (0.000-0.034)
[2021-04-12 20:00] LABS: Amphetamine Screen Urine Negative (Negative); Barbiturate Screen Urine Negative (Negative); Benzodiazepines Screen Urine Positive (Negative); Cannabinoid Screen Urine Negative (Negative); Cocaine Screen Urine Negative (Negative); Methadone Screen Urine Negative (Negative); Opiate Screen Urine Negative (Negative); Phencyclidine Screen Urine Negative (Negative)
== END 2021-04-12 21:10 | disposition home or self-care (01) ==
PROVIDERS: Emergency Medicine; Emergency Provider Emergency Medicine; PCP Emergency Medicine
DX: R40.0 Somnolence (principal); R26.2 Difficulty in walking, not elsewhere classified; T42.4X5A Adverse effect of benzodiazepines, initial encounter; I10 Essential (primary) hypertension; E78.5 Hyperlipidemia, unspecified; J44.9 Chronic obstructive pulmonary disease, unspecified; Z90.49 Acquired absence of other specified parts of digestive tract; Z87.891 Personal history of nicotine dependence; R91.8 Other nonspecific abnormal finding of lung field; R94.31 Abnormal electrocardiogram [ECG] [EKG]
CPT/HCPCS: 36415; 36600; 70450; 71045; 80053; 80307; 81001; 82550; 82805; 84443; 84484; 85025; 85610; 85730; 93005; 99284

== ENCOUNTER 2021-05-25 07:46 | Outpatient (CLI) | payer OTHER, SELFPAY ==
--- NOTE | 2021-05-25 12:35 | WPDSIXMINUTE ---
Six Minute Walk Procedure Procedure Performed Pulmonary Stress Test (6 min walk) Six Minute Walk This is a 6 minutes walk test. The test was performed and interpreted in accordance with the 2014 ERS/ATS task force guidelines. The test was performed with patient's home O2 setting of 1 liter/minute nasal cannula. Findings: The patient's resting oxygen saturation on 1 L NC measured by pulse oximetry was 92% and the heart rate was 74 bpm. Patient ambulated for 244 meters and oxygen saturation remained 89 to 94%. Heart rate at the end of the study was 78 bpm. There are no prior studies for comparison.
--- NOTE | 2021-05-25 12:38 | WPDPFTINT ---
PFT Procedure Performed PFT Procedure Performed Spirometry with Pre/Post Bronchodilator Plethysmography (Lung Vol) Diffusing Cap (DLCO) Flow Vol Loop PFT Interpretation This is a pulmonary function test with pre and post-bronchodilator spirometry, plethysmography and diffusing capacity. The test was performed and results interpreted in accordance with the 2019 and 2005 ATS/ERS Task Force guidelines respectively using the Global Lung Function Initiative-2012 reference equations. Patient demonstrated good effort and cooperation. Reproducibility criteria were met. The quality of the pre bronchodilator spirometry maneuver was Grade A and post bronchodilator spirometry maneuver was Grade A. Findings: Spirometry: there is decreased maximal expiratory airflow at all lung volumes with concave expiratory flow tracing. The pre bronchodilator FVC is 2.72 L, 63% predicted. The pre bronchodilator FEV1 is 1.11 L, 33% predicted. The FEV1: FVC ratio is 41%. The post bronchodilator FVC is 3.52 L, representing a 29% increase. The post bronchodilator FEV1 is 1.40 L, representing a 25% increase. Plethysmography: The total lung capacity is 6.89 L, 104% predicted. The functional residual capacity is 4.82 L, 141% predicted. The residual volume is 4.05 L, 188% predicted. Diffusing capacity: The absolute diffusion capacity is 7.0, 26% predicted. The diffusing capacity corrected for alveolar volume is 1.74, 40% predicted. Impression: There is a very severe obstructive abnormality with significant improvement after inhaling a single dose of albuterol. The increase in residual volume is consistent with air trapping from an obstructive abnormality. The absolute diffusing capacity is severely decreased and remains moderately decreased when corrected for alveolar volume. There are no prior studies for comparison
== END 2021-05-25 07:47 | disposition home or self-care (01) ==
PROVIDERS: PCP Emergency Medicine; Visit Provider Nurse Practitioner
DX: J44.9 Chronic obstructive pulmonary disease, unspecified (principal); R94.2 Abnormal results of pulmonary function studies
CPT/HCPCS: 94060; 94618; 94726; 94729

== ENCOUNTER 2021-11-11 08:30 | Outpatient (RCR) | payer OTHER, SELFPAY | END 2021-11-26 23:59 | disposition home or self-care (01) | LOC: ANHCPREHAB 08:30 | PROVIDERS: PCP Emergency Medicine | DX: J43.9 Emphysema, unspecified (principal) | CPT/HCPCS: 94625; 97150; G0424 ==

== ENCOUNTER 2021-11-23 07:08 | Outpatient (RCR) | payer OTHER, SELFPAY ==
[2021-11-23 07:40] VITALS: BP 132/67; PULSE 93; RESP 24; TEMP 37; O2SAT 90
[2021-11-23] MEDS: ACETAMINOPHEN 325 MG TABLET 650 MG PO (07:49)
[2021-11-23] MEDS: diphenhydrAMINE HCl CAP 25 MG CAPSULE PO (07:50)
[2021-11-23] MEDS: FAMOTIDINE 20 MG TABLET PO (07:50)
[2021-11-23 09:14] VITALS: BP 150/68; PULSE 84; O2SAT 90
--- NOTE | 2021-11-24 10:33 | PC.NURSE ---
Patient was admitted to the hospital yesterday after monoclonal antibody infusion. Patient's oxygen sats dropped below 90 at home. Patient is doing better today according to and patient is not on ventilator.
== END 2021-11-23 17:00 ==
LOC: AMCINF 07:08
PROVIDERS: PCP Internal Medicine; Referring Provider Internal Medicine; Visit Provider Internal Medicine Hematology & Oncology
DX: U07.1 COVID-19 (principal); I10 Essential (primary) hypertension; J44.9 Chronic obstructive pulmonary disease, unspecified
CPT/HCPCS: A9270; M0247

== ENCOUNTER 2021-12-27 11:22 | Inpatient (IN) | payer OTHER, SELFPAY ==
[2021-12-27] VITALS (18 sets, daily range): BP systolic 123–153; BP diastolic 72–103; PULSE 83–112; RESP 15–39; TEMP 36–36.4; O2SAT 76–100
--- NOTE | ~2021-12-27 | CT_ITS ---
EXAMINATION: CTA chest PE protocol EXAM DATE: 12/27/2021 14:03 INDICATION: sob, leg swollen, recent COVID. Cough. TECHNIQUE: Spiral CTA of the chest (pulmonary arteries) was performed with 100 cc Omnipaque 350 intr avenous contrast injection. Images were acquired during the pulmonary arterial phase. Coronal maxi mum intensity projection 3D-reconstructions were created by the technologist on dedicated workstation . Axial, coronal and sagittal reformatted images were reviewed. The dose-length product (DLP) for t his examination was 745.94 mGy-cm. The exposure was tailored according to patient size (auto mA exp osure control), and iterative reconstruction (ASIR) was used as additional dose reduction technique. Comparison is made to prior examination from 04/07/2021. FINDINGS: There are no pulmonary emboli in the 1st through 3rd order (central and interlobar) pulmon kai arteries. Some loss of attenuation in the left basilar segmental pulmonary from respiratory sherita on, these regions not confidently evaluated. No Intraluminal filling defects identified. No thoraci c aortic dissection. Heart is normal in size. There is moderate amount of left basilar, smaller amount of right basilar gr oundglass density airspace disease, interlobular septal thickening, edema or pneumonia which was not present last March. There is severe emphysema and moderate hyperinflation. There are no pleural or yancy cardial effusions. Tracheobronchial tree is patent. Subcarinal lymph node measures 2.3 x 1.8 x 3. 8 cm, was normal in size on prior studies. No upper abdominal retroperitoneal, or hilar lymphadenopat hy. There is no pneumothorax. There is mild coronary arterial calcification, arterial sclerosis. Upper abdomen is unremarkable. No osteoblastic or osteolytic lesions identified. Mild thoracic scol iosis. IMPRESSION: 1. Limited left basilar segmental evaluation, but no pulmonary emboli are suspected. 2. Moderate amount of basilar edema and/or pneumonia. 3. Severe emphysema, moderate hyperinflation. 4. Development of subcarinal lymphadenopathy, could be reactive given airspace disease but lymphoma or other malignancy not excludable. Reviewed, dictated and finalized at location [facility] IMPRESSION: 1. Limited left basilar segmental evaluation, but no pulmonary emboli are susp ected. 2. Moderate amount of basilar edema and/or pneumonia. 3. Severe emphysema, moderate hyperinflation. 4. Development of subcarinal lymphadenopathy, could be reactive given airspace disease but lymphoma or other malignancy not excludable.
--- NOTE | ~2021-12-27 | US_ITS ---
EXAMINATION: US venous doppler LE RT EXAM DATE: 12/27/2021 15:42 INDICATION: Right leg swelling. TECHNIQUE: Multiple grayscale, color flow and Doppler images of the right lower extremity deep venous system were obtained and reviewed. There is no prior study for comparison. FINDINGS: The right common femoral, femoral and profunda veins demonstrate normal color flow, respira tory variation, augmentation and compressibility. Compressibility, color flow confirmed within the r ight popliteal, posterior tibial, peroneal, and greater saphenous veins. IMPRESSION: No right lower extremity deep venous thrombosis. Reviewed, dictated and finalized at location [facility]
--- NOTE | ~2021-12-27 | XR_ITS ---
EXAMINATION: XR chest 1V portable EXAM DATE: 12/27/2021 12:07 INDICATION: Dysnea, COVID 11/23/21 . TECHNIQUE: Portable AP frontal chest x-ray was obtained. Comparison is made to prior examination from 04/12/2021. FINDINGS: Diffuse abnormal reticulation with bibasilar predominance, more pronounced than on prior st udy. Prior CT last year had extensive emphysema but most of this airspace disease suspected to be acu te process of chest edema or pneumonia. There is small left pleural effusion. Cardiomediastinal silho uette is normal. There is no pneumothorax suspected. IMPRESSION: Moderate amount of basilar airspace disease probably pneumonia or edema. Small left eff usion. Reviewed, dictated and finalized at location [facility]. [facility] IMPRESSION: Moderate amount of basilar airspace disease probably pneumonia or edema. Small left effusion.
--- NOTE | 2021-12-27 11:43 | ECG_ITS ---
Measurements Intervals [place] Rate: 81 P: 42 [place]: 135 QRS: 46 QRSD: 82 T: 58 QT: 362 QTc: 420 Interpretive Statements SINUS RHYTHM EARLY PRECORDIAL R/S TRANSITION BORDERLINE ST ABNORMALITY- ANTEROLATERAL LEADS BASELINE ARTIFACT- II, III, V1, V3 BORDERLINE ECG Electronically Signed On 12-27-2021 12:38:18 FRAUD REPRESENTATIVE by Kwame Mccullough D.O.
[2021-12-27 11:58] LABS: Basophils Percent Auto 0.3 % (0.2-1.2); Eosinophils Absolute Auto 0.1 K/mm3 (0-0.3); Hematocrit 38.4 % (42.0-52.0); Hemoglobin 12.6 g/dL (14.0-18.0); Immature Granulocyte Absolute 0.07 K/mm3 (0.00-0.031); Immature Granulocyte Percent A 1.1 % (0-0.5); Lymphocytes Absolute Auto 0.87 K/mm3 (0.9-3.2); Lymphocytes Percent Auto 14.2 % (18.3-44.2); Mean Corpuscular HGB Conc 32.8 g/dl (32-36); Mean Corpuscular Hemoglobin 30.2 pg (26-34); Mean Corpuscular Volume 92.1 fl (80-100); Mean Platelet Volume 9.8 fl (7.4-10.4); Monocytes Absolute Auto 0.7 K/mm3 (0.1-0.6); Monocytes Percent Auto 11.6 % (2.6-8.5); Neutrophils Absolute Auto 4.4 K/mm3 (1.3-6.7); Neutrophils Percent Auto 71.8 % (45.5-73.1); Platelet Count Result 357 k/mm3 (150-375); Red Blood Count 4.17 M/mm3 (4.6-6.20); Red Cell Distribution Width 13.8 % (11.5-14.5); White Blood Count 6.1 K/mm3 (4.5-10.0)
[2021-12-27 12:11] LABS: Alanine Aminotransferase 27 U/L (4-50); Albumin Level 3.8 g/dL (3.5-5.1); Alkaline Phosphatase 89 U/L (38-126); Anion Gap 6 mmol/L (8-16); Aspartate Amino Transferase 26 U/L (17-59); Blood Urea Nitrogen 14 mg/dL (9-20); Calcium 8.9 mg/dL (8.4-10.2); Carbon Dioxide 25 mmol/L (22-30); Chloride 102 mmol/L (98-107); Estimated Glomerular Filt Rate > 60; Glucose 123 mg/dL (65-110); Potassium 3.8 mmol/L (3.4-5.0); Sodium 133 mmol/L (137-145)
--- NOTE | 2021-12-27 14:04 | ED.SOB ---
HPI - SOB/Dyspnea General Chief Complaint: Shortness of Breath/Dyspnea Stated Complaint: SOB Time Seen by Provider: 12/27/21 12:22 Source: patient Mode of arrival: ambulatory Limitations: no limitations History of Present Illness HPI Narrative: 61-year-old male Here because of shortness of breath Patient has a history of severe bullous emphysema He sees pulmonary at [place], usually uses 1 L of supplemental oxygen Slightly over a month ago he contracted Covid He did receive monoclonal antibodies, unclear which ones However he still deteriorated and became more hypoxemic and required hospitalization This occurred at [facility], and while there he received remdesivir and dexamethasone He was discharged 4 weeks ago and had a increased oxygen requirement of 4 to 5 L At some point note was taken of swelling in his right leg and he received Lasix He was seen in the pulmonary office today in follow-up and note was made of his persistent dyspnea and lack of improvement, as well as the leg swelling and he was sent to the ED Patient says that nothing much is changed in several days, he just is not improving and needing to wear 5 to 6 L of O2 with activity around the house He previously has been evaluated at [place] to possibly have a Ethel device installed Related Data Home Medications Medication Instructions Recorded Confirmed albuterol sulfate 1.25 mg/3 mL See Rx Instructions .ROUTE .COMPLEX 02/24/20 11/23/21 solution for nebulization magnesium 250 mg tablet 500 mg PO HS 02/24/20 11/23/21 guaifenesin 600 mg tablet, 1,200 mg PO BID 07/14/20 11/23/21 extended release 12 hr zinc 50 mg PO DAILY 07/14/20 11/23/21 simvastatin 10 mg PO HS 04/06/21 11/23/21 furosemide 12/27/21 Allergies Allergy/AdvReac Type Severity Reaction Status Date / Time No Known Allergies Allergy Verified 12/27/21 12:24 Review of Systems Review of Systems: All systems reviewed & are unremarkable except as noted in HPI and below Constitutional: Constitutional: Reports no additional constitutional complaints, Denies chills, Reports fatigue, Denies fever(s), Denies headache(s) and Reports weakness Eyes: Eyes: Reports no additional eye complaints and Denies change in vision ENT: Denies headache(s) and Denies sore throat Cardiovascular: Cardiovascular: Denies chest pain and Denies dyspnea Respiratory: Respiratory: Reports cough and Reports dyspnea Gastrointestinal: Gastrointestinal: Denies abdominal pain, Denies diarrhea and Denies vomiting Genitourinary: Genitourinary: Denies dysuria and Denies urinary frequency Musculoskeletal: Musculoskeletal: Denies deformity, Denies arthralgias, Denies joint swelling and Denies numbness Integumentary/Breasts: Skin/Breast: Denies rash and Denies wounds Neurologic: Denies headache(s), Denies focal weakness and Denies numbness Psychiatric: Psychiatric: Reports no additional psychiatric complaints Endocrine: Endocrine: Reports no additional endocrine complaints Hematologic/Lymphatic: Hematologic/Lymphatic: Reports no additional hematologic/lymphatic complaints Allergic/Immunologic: Allergic/Immunologic: Reports no additional allergic/immunologic complaints PMFSH Past Medical History Medical History Chronic obstructive pulmonary disease Diverticulitis Status post partial colon resection. Hyperlipidemia Hypertension Seasonal allergies Surgical History Surgical History History of partial colectomy Due to recurrent diverticulitis. Family History Family History Sibling Pulmonary disease Mother Family history of coronary artery disease Heart attack Cerebrovascular accident Cancer Father Family history of heart disease in male family member before age 55 Family history of coronary artery disease Heart attack Cere
[2021-12-27] MEDS: ALBUTEROL SULFATE NEB 2.5 MG/0.5 ML INH 5 MG INHALATION (15:07)
[2021-12-27] MEDS: IPRATROPIUM BR 0.02% INH SOLN 0.5 MG/2.5 ML VIAL INHALATION (15:07)
[2021-12-27] MEDS: DOXYCYCLINE 100 MG/NS 100 ML 100 MG/100 ML BAG IVPB (16:16)
--- NOTE | 2021-12-27 16:50 | PM.IMHP ---
H&P: HPI History of Present Illness Date/Time: 12/27/21 16:50 Chief Complaint: Shortness of breath. Narrative: This is a pleasant 61-year-old male with COPD, chronic respiratory failure on oxygen, hypertension, and hyperlipidemia who presented to the emergency department earlier today via private vehicle from home with complaints of shortness of breath. He has historically been on 1 L however he has consistently been on 5 L nasal cannula since being hospitalized with COVID pneumonia in October 2021 at [facility] in [place]. He was hopeful that his lungs would improve enough that he would be able to back down his oxygen though unfortunately that is not the case and in fact he admits that at times he sees his SpO2 dropped into the low 80s though he believes that is due to the fact that he is having difficulties breathing out of his nose. Apparently he has ulcerations and swelling in the nostrils that he believes is due to the high-flow oxygen and dry air. Today he followed up with his clinical appeals reviewer in [place] and due to persistent dyspnea, lack of improvement, and lower extremity edema he was sent to the ER for evaluation. At the time my evaluation he has several coughing jags which she states is not necessarily unusual for him. His cough is rarely productive of hernandez colored phlegm though he feels as though there is a large amount of stuff in his lungs that he is unable to get up. Nebulizers and Tessalon Perles have not helped much. He was also prescribed furosemide 20 mg daily though that has not helped either. CTA of the chest done on arrival to the ER today she showed no suspected pulmonary emboli though exam was limited in the left basilar segment. A moderate amount of basilar edema and/or pneumonia was also noted as well as the development of subcarinal lymphadenopathy (could be reactive though lymphoma or other malignancy not excludable) and severe emphysema with moderate hyperinflation. He is being admitted in this setting with a COPD exacerbation. He denies fever, sore throat, exertional chest pain, nausea, and vomiting. No history of venous thromboembolism for malignancy. Review of Systems Review of Systems: Twelve systems were reviewed and are negative except for as per HPI. [facility] Past Medical History Medical History (Updated 12/27/21 @ 21:37 by Marianne Aguilar PA-C) Chronic obstructive pulmonary disease COVID-19 (10/2021) Diastolic dysfunction Grade 1 diastolic dysfunction noted on echocardiogram in March 2021. EF at that time was estimated to be greater than 70% with mildly increased left ventricular wall thickness. Right atrial chamber was mildly enlarged. Diverticulitis Status post partial colon resection. Emphysema of lung The patient has met with a physician at [place] for evaluation for possible [place] valve treatment Hyperlipidemia Hypertension Seasonal allergies Surgical History Surgical History History of partial colectomy Due to recurrent diverticulitis. Family History Family History Sibling Pulmonary disease Mother Family history of coronary artery disease Heart attack Cerebrovascular accident Cancer Father Family history of heart disease in male family member before age 55 Family history of coronary artery disease Heart attack Cerebrovascular accident Social History Social History (Updated 12/27/21 @ 21:32 by Marianne Aguilar PA-C) Social History: The patient lives in [place] with his . They have 3 children. Previously worked at [employer] and reports exposure to silica. 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 He smoked about 2 packs of cigarettes a day for nearly 25 years and quit in the . He has been using chewing tobacco for the last 5 years or so, 1 can lasting up to a week at a time. No alcohol or illicit substance abuse. He designates his Tina as his surr
[2021-12-27] MEDS: LACTATED RINGERS 1,000 ML 125 ML IV CONT (17:14)
--- NOTE | 2021-12-27 19:38 | ADMGEN ---
This patient, Denys Ahmadi, was admitted to [facility] Room 303-01 at 1830. Patient/family oriented to hospital policies and general routines including ID bracelet, bed and alarms, visiting hours, pain management, procedures, bathroom and other care routines, personal items, smoking policy, room service/diet, and visiting hours. Information on how to activate the Rapid Response Team has been discussed. Patient/Family are encouraged to report perceived risks to care and to ask questions if they do not understand what they are told or what they should do.
[2021-12-27] MEDS: SALINE 0.65% NAS SOLN 44 ML BTL 1 SPRAY NASAL (21:58)
[2021-12-27] MEDS: SIMVASTATIN 10 MG TABLET PO (21:59)
[2021-12-27] MEDS: MAGNESIUM 27 MG TABLET (500 MG MAG GLUCONATE) PO (21:59)
[2021-12-27] MEDS: FUROSEMIDE INJ 40 MG/4 ML VIAL IV PUSH (22:07)
[2021-12-28] VITALS (14 sets, daily range): BP systolic 134–149; BP diastolic 65–85; PULSE 82–114; RESP 16–20; TEMP 36.4–36.9; O2SAT 92–94
[2021-12-28] MEDS: methylPREDNISolone SOD SUCC 125 MG VIAL 60 MG IV PUSH ×4 (00:58→18:15)
--- NOTE | 2021-12-28 01:01 | PCRCNOTE ---
Window of time for administration has passed. See next scheduled administration.
[2021-12-28] MEDS: IPRATROPIUM BR 0.02% INH SOLN 0.5 MG/2.5 ML VIAL INHALATION ×4 (02:15→20:30)
[2021-12-28] MEDS: ALBUTEROL SULFATE NEB 2.5 MG/0.5 ML INH 5 MG INHALATION ×4 (02:15→20:30)
[2021-12-28] MEDS: DOXYCYCLINE 100 MG/NS 100 ML 100 MG/100 ML BAG IVPB ×2 (06:00→18:14)
[2021-12-28 06:46] LABS: Hematocrit 35.6 % (42.0-52.0); Mean Corpuscular HGB Conc 33.7 g/dl (32-36); Mean Platelet Volume 9.9 fl (7.4-10.4); Platelet Count Result 372 k/mm3 (150-375); Red Cell Distribution Width 13.6 % (11.5-14.5); White Blood Count 4.7 K/mm3 (4.5-10.0)
[2021-12-28 06:57] LABS: Alanine Aminotransferase 27 U/L (4-50); Albumin Level 3.8 g/dL (3.5-5.1); Alkaline Phosphatase 87 U/L (38-126); Anion Gap 6 mmol/L (8-16); Aspartate Amino Transferase 24 U/L (17-59); Bilirubin,Total 0.6 mg/dL (0.2-1.3); Blood Urea Nitrogen 16 mg/dL (9-20); CRP 4.6 mg/dL (<1.0); Carbon Dioxide 28 mmol/L (22-30); Chloride 100 mmol/L (98-107); Estimated Glomerular Filt Rate > 60; Glucose 151 mg/dL (65-110); Magnesium 2.2 mg/dL (1.6-2.3); Potassium 3.6 mmol/L (3.4-5.0); Sodium 134 mmol/L (137-145)
[2021-12-28 07:02] LABS: NT Pro B Type Natriuretic Pept 144 pg/mL (5-100)
[2021-12-28 07:27] LABS: Procalcitonin 0.1 ng/mL
--- NOTE | 2021-12-28 07:45 | PM.IMPN ---
Progress Note: A&P Assessment and Plan (1) Acute and chronic respiratory failure with hypoxia: Code(s): J96.21 - Acute and chronic respiratory failure with hypoxia Status: Acute Assessment and Plan: Saturation in the ED was 76% Chronic oxygen of 5LNC at home post covid Reports inability to breathe nasally due to dry mucous membranes and congestion Humidity and ocean spray added CTA did not exhibit PE Consider ENT consult (2) Pulmonary infiltrates: Code(s): R91.8 - Other nonspecific abnormal finding of lung field Status: Acute Assessment and Plan: Could be residual COVID pneumonia or bacterial pneumonia Bacterial PNA unlikely, since he is afebrile and normal WBC CTA did also exhibit edema in the mild lower extremity swelling as well Chest xray Moderate amount of basilar airspace disease probably pneumonia or edema. Small left effusion. Sputum culture ordered and pending One time dose of IV Lasix 40 mg resume p.o. Lasix, increase to 40mg PO daily Initiate pulmonary toilet, with IS and pep therapy (3) COPD exacerbation: Code(s): J44.1 - Chronic obstructive pulmonary disease with (acute) exacerbation Status: Acute Assessment and Plan: Reports increase in sputum with changes, increase oxygen demand, and increase wheezes CTA showed severe emphysema Methylprednisolone 60mg IV Q6hr Continue doxycycline scheduled bronchodilators Atrovent and albuterol Sputum culture ordered and pending Supplemental oxygen, wean to maintain saturation >90% Guaifenesin Q12hr CPT QID (4) Hypertension: Code(s): I10 - Essential (primary) hypertension Status: Acute Assessment and Plan: Current BP 149/85 Continue home losartan 100mg PO Daily Trend BP Adjust therapy as indicated (5) CHF (congestive heart failure): Code(s): I50.9 - Heart failure, unspecified Status: Acute Assessment and Plan: Chest xray and CTA show pulmonary edema BNP pending 20mg PO lasix at home, increase to 40mg PO daily Daily weights Strict I&Os Echo from 03/2021 EF of >70% with grade 1 diastolic dysfunction Repeat echo for changes and to see if this could be exacerbation Trend urine output (6) Hyperlipidemia: Code(s): E78.5 - Hyperlipidemia, unspecified Status: Acute Assessment and Plan: LFT normal Continue simvastatin 10mg PO at HS Time Spent With Patient Time with patient: Greater than 35 minutes Subjective Date/time seen: 12/28/21 07:45 Interval history: Date/Time: 12/27/21 16:50 Narrative: This is a pleasant 61-year-old male with COPD, chronic respiratory failure on oxygen, hypertension, and hyperlipidemia who presented to the emergency department earlier today via private vehicle from home with complaints of shortness of breath. He has historically been on 1 L however he has consistently been on 5 L nasal cannula since being hospitalized with COVID pneumonia in October 2021 at [facility] in [place]. He was hopeful that his lungs would improve enough that he would be able to back down his oxygen though unfortunately that is not the case and in fact he admits that at times he sees his SpO2 dropped into the low 80s though he believes that is due to the fact that he is having difficulties breathing out of his nose. Apparently he has ulcerations and swelling in the nostrils that he believes is due to the high-flow oxygen and dry air. Today he followed up with his power lineworker in [place] and due to persistent dyspnea, lack of improvement, and lower extremity edema he was sent to the ER for evaluation. At the time my evaluation he has several coughing jags which she states is not necessarily unusual for him. His cough is rarely productive of hernandez colored phlegm though he feels as though there is a large amount of stuff in his lungs that he is unable to get up. Nebulizers and Te
--- NOTE | 2021-12-28 07:45 | P.PNIM_ITS ---
Progress Note: A&P Assessment and Plan (1) Acute and chronic respiratory failure with hypoxia: Code(s): J96.21 - Acute and chronic respiratory failure with hypoxia Status: Acute Assessment and Plan: * Saturation in the ED was 76% * Chronic oxygen of 5LNC at home post covid * Reports inability to breathe nasally due to dry mucous membranes and congestion * Humidity and ocean spray added * CTA did not exhibit PE * Consider ENT consult (2) Pulmonary infiltrates: Code(s): R91.8 - Other nonspecific abnormal finding of lung field Status: Acute Assessment and Plan: * Could be residual COVID pneumonia or bacterial pneumonia * Bacterial PNA unlikely, since he is afebrile and normal WBC * CTA did also exhibit edema in the mild lower extremity swelling as well * Chest xray Moderate amount of basilar airspace disease probably pneumonia or edema. Small left effusion. * Sputum culture ordered and pending * One time dose of IV Lasix 40 mg * resume p.o. Lasix, increase to 40mg PO daily * Initiate pulmonary toilet, with IS and pep therapy (3) COPD exacerbation: Code(s): J44.1 - Chronic obstructive pulmonary disease with (acute) exacerbation Status: Acute Assessment and Plan: * Reports increase in sputum with changes, increase oxygen demand, and increase wheezes * CTA showed severe emphysema * Methylprednisolone 60mg IV Q6hr * Continue doxycycline * scheduled bronchodilators Atrovent and albuterol * Sputum culture ordered and pending * Supplemental oxygen, wean to maintain saturation >90% * Guaifenesin Q12hr * CPT QID (4) Hypertension: Code(s): I10 - Essential (primary) hypertension Status: Acute Assessment and Plan: * Current BP 149/85 * Continue home losartan 100mg PO Daily * Trend BP * Adjust therapy as indicated (5) CHF (congestive heart failure): Code(s): I50.9 - Heart failure, unspecified Status: Acute Assessment and Plan: * Chest xray and CTA show pulmonary edema * BNP pending * 20mg PO lasix at home, increase to 40mg PO daily * Daily weights * Strict I&Os * Echo from 03/2021 EF of >70% with grade 1 diastolic dysfunction * Repeat echo for changes and to see if this could be exacerbation * Trend urine output (6) Hyperlipidemia: Code(s): E78.5 - Hyperlipidemia, unspecified Status: Acute Assessment and Plan: * LFT normal * Continue simvastatin 10mg PO at HS Time Spent With Patient Time with patient: Greater than 35 minutes Subjective Date/time seen: 12/28/21 07:45 Interval history: Date/Time: 12/27/21 16:50 Narrative: This is a pleasant 61-year-old male with COPD, chronic respiratory failure on oxygen, hypertension, and hyperlipidemia who presented to the emergency department earlier today via private vehicle from home with complaints of shortness of breath. He has historically been on 1 L however he has consistently been on 5 L nasal cannula since being hospitalized with COVID pneumonia in October 2021 at [facility] in [place]. He was hopeful that his lungs would improve enough that he would be able to back down his oxygen though unfortunately that is not the case and in fact he admits that at times he sees his SpO2 dropped into the low 80s though he believes that is due to the fact that he is having difficulties breathing out of his nose. Apparently he has ulcerations and swelling in the nostrils that he believes is due to the high-flow oxy
[2021-12-28] MEDS: FLUTICASONE/SALMETEROL 115-21 MCG INHALER 1 PUFF 2 PUFF INHALATION ×2 (09:06→20:30)
[2021-12-28] MEDS: DORNASE ALFA INH SOLN 1 MG/ML 2.5 ML AMP 2.5 MG INHALATION ×2 (09:06→20:30)
[2021-12-28] MEDS: LOSARTAN POTASSIUM 100 MG TABLET PO (09:58)
[2021-12-28] MEDS: FUROSEMIDE 40 MG TABLET PO (09:58)
[2021-12-28] MEDS: ENOXAPARIN 40 MG/0.4 ML SYRINGE SUB-Q (09:58)
[2021-12-28] MEDS: guaiFENesin 12 HR 600 MG TABCR 1200 MG PO ×2 (09:58→20:46)
[2021-12-28] MEDS: SIMVASTATIN 10 MG TABLET PO (20:46)
[2021-12-28] MEDS: MAGNESIUM 27 MG TABLET (500 MG MAG GLUCONATE) PO (20:46)
--- NOTE | 2021-12-28 21:43 | ECHO_ITS ---
Patient Info Name: Denys Ahmadi Age: 61 years : 1960 Gender: Male Ht: 69 in Wt: 191 lbs BSA: 2.07 m2 HR: 97 bpm BP: 149 / 85 mmHg Technical Quality: Fair Exam Date: 12/28/2021 8:18 AM Exam Location: [facility] Pulmonary Patient Status: Inpatient Admit Date: 12/27/2021 Staff Ordering Physician: Marianne Aguilar PA-C Cleaning Validation Consultant: Hardeep Cerna RDCS, RT Attending Provider: Rodriguez Ko MD Referring Physician: Lauren EDWARDS; Exam Type: CA echo doppler color flow Study Info Indications I10 - Essential (primary) hypertension R06.02 - Shortness of breath Complete two-dimensional, color flow and Doppler transthoracic echocardiogram is performed. Strain analysis performed. Summary 1. Complete two-dimensional, color flow and Doppler transthoracic echocardiogram is performed. 2. Left ventricular chamber dimension is normal. 3. Left ventricular systolic function is normal, estimated at 60-65%. 4. The left ventricular diastolic function is grade I diastolic dysfunction. 5. E/e' 7 is not elevated. 6. Global longitudinal strain is mildly abnormal at -16.6%. Left Ventricle E/e' 7 is not elevated. Global longitudinal strain is mildly abnormal at -16.6%. Left ventricular chamber dimension is normal. Left ventricular systolic function is normal, estimated at 60-65%. The left ventricular diastolic function is grade I diastolic dysfunction. Right Ventricle Right ventricular chamber dimension is normal. Right ventricular systolic function is normal. Left Atria Left atrial chamber dimension is normal. Right Atria Right atrial chamber dimension is normal. Aortic Valve The aortic valve is trileaflet. There is no aortic valve stenosis. There is no aortic valve regurgitation. Pulmonic Valve There is no pulmonic regurgitation. Mitral Valve There is no mitral valve stenosis. There is no mitral valve regurgitation. Tricuspid Valve There is no tricuspid valve regurgitation. Pericardium/Pleural There is no pericardial effusion. Inferior Vena Cava Normal inferior vena cava with >50% collapse upon inspiration consistent with normal right atrial pressure, 5 mmHg. Aorta The aortic root size at the sinus of Valsalva is normal. Left Ventricular Outflow Tract Name Value Normal LVOT 2D LVOT Diameter 2.1 cm LVOT Doppler LVOT Peak Gradient 5 mmHg LVOT Mean Gradient 2 mmHg LVOT VTI 16 cm LVOT VTI/AV VTI Ratio 0.8 LVOT Stroke Volume 56 ml LVOT CO 5.7 l/min LVOT CI 2.7 l/min/m2 Mitral Valve Name Value Normal MV Doppler MV Decel [place] 396 cm/s2 MV PHT 49
[2021-12-28 22:12] LABS: Glucose Point of Care 187 mg/dl (65-105)
[2021-12-29] VITALS (12 sets, daily range): BP systolic 133–140; BP diastolic 53–71; PULSE 92–120; RESP 16–22; TEMP 36.4–37.1; O2SAT 90–93; BMI 27.0
[2021-12-29] MEDS: methylPREDNISolone SOD SUCC 125 MG VIAL 60 MG IV PUSH ×3 (00:39→09:38)
[2021-12-29] MEDS: IPRATROPIUM BR 0.02% INH SOLN 0.5 MG/2.5 ML VIAL INHALATION ×4 (02:48→19:40)
[2021-12-29] MEDS: ALBUTEROL SULFATE NEB 2.5 MG/0.5 ML INH 5 MG INHALATION ×2 (02:48→09:35)
[2021-12-29] MEDS: DOXYCYCLINE 100 MG/NS 100 ML 100 MG/100 ML BAG IVPB ×2 (06:04→17:00)
[2021-12-29 07:25] LABS: Basophils Percent Auto 0.2 % (0.2-1.2); Hemoglobin 12.2 g/dL (14.0-18.0); Immature Granulocyte Absolute 0.21 K/mm3 (0.00-0.031); Immature Granulocyte Percent A 1.6 % (0-0.5); Lymphocytes Percent Auto 6.1 % (18.3-44.2); Mean Corpuscular Hemoglobin 30.3 pg (26-34); Mean Platelet Volume 10.2 fl (7.4-10.4); Monocytes Absolute Auto 0.7 K/mm3 (0.1-0.6); Monocytes Percent Auto 5.1 % (2.6-8.5); Neutrophils Absolute Auto 11.5 K/mm3 (1.3-6.7); Platelet Count Result 457 k/mm3 (150-375); Red Blood Count 4.02 M/mm3 (4.6-6.20); White Blood Count 13.2 K/mm3 (4.5-10.0)
[2021-12-29 07:35] LABS: Alanine Aminotransferase 31 U/L (4-50); Albumin Level 3.9 g/dL (3.5-5.1); Alkaline Phosphatase 82 U/L (38-126); Anion Gap 10 mmol/L (8-16); Aspartate Amino Transferase 27 U/L (17-59); Bilirubin,Total 0.5 mg/dL (0.2-1.3); Blood Urea Nitrogen 18 mg/dL (9-20); Calcium 9.4 mg/dL (8.4-10.2); Carbon Dioxide 24 mmol/L (22-30); Chloride 99 mmol/L (98-107); Estimated CRCL calculation 112 ml/min; Estimated Glomerular Filt Rate > 60; Glucose 167 mg/dL (65-110); Magnesium 2.2 mg/dL (1.6-2.3); Potassium 3.7 mmol/L (3.4-5.0); Sodium 133 mmol/L (137-145)
--- NOTE | 2021-12-29 09:30 | P.PNIM_ITS ---
Progress Note: A&P Assessment and Plan (1) Acute and chronic respiratory failure with hypoxia: Code(s): J96.21 - Acute and chronic respiratory failure with hypoxia Status: Acute Assessment and Plan: * Saturation in the ED was 76% * Chronic oxygen of 5LNC at home post covid * Reports inability to breathe nasally due to dry mucous membranes and congestion * Humidity and ocean spray added * CTA did not exhibit PE * Consider ENT consult * Was able to titrate to 2LNC with saturation >90% (2) Pulmonary infiltrates: Code(s): R91.8 - Other nonspecific abnormal finding of lung field Status: Acute Assessment and Plan: * Could be residual COVID pneumonia or bacterial pneumonia * Bacterial PNA unlikely, since he is afebrile and normal WBC * CTA did also exhibit edema in the mild lower extremity swelling as well * Chest xray Moderate amount of basilar airspace disease probably pneumonia or edema. Small left effusion. * Sputum culture ordered and pending, showed normal growth * One time dose of IV Lasix 40 mg * resume p.o. Lasix, increase to 40mg PO daily * Initiate pulmonary toilet, with IS and pep therapy (3) COPD exacerbation: Code(s): J44.1 - Chronic obstructive pulmonary disease with (acute) exacerbation Status: Acute Assessment and Plan: * Reports increase in sputum with changes, increase oxygen demand, and increase wheezes * CTA showed severe emphysema * Methylprednisolone 60mg IV Q6hr, changed to 50mg PO daily * Continue doxycycline * scheduled bronchodilators Atrovent and albuterol * Sputum culture normal ariel * Supplemental oxygen, wean to maintain saturation >90% * Guaifenesin Q12hr * CPT QID (4) Hypertension: Code(s): I10 - Essential (primary) hypertension Status: Acute Assessment and Plan: * Current BP 140/71 * Continue home losartan 100mg PO Daily * Trend BP * Adjust therapy as indicated (5) CHF (congestive heart failure): Code(s): I50.9 - Heart failure, unspecified Status: Acute Assessment and Plan: * Chest xray and CTA show pulmonary edema * BNP 144 * 20mg PO lasix at home, increase to 40mg PO daily * Daily weights * Strict I&Os * Echo from 03/2021 EF of >70% with grade 1 diastolic dysfunction * Repeat echo EF of 60-65% with grade 1 diastolic dysfunction * Trend urine output (6) Hyperlipidemia: Code(s): E78.5 - Hyperlipidemia, unspecified Status: Acute Assessment and Plan: * LFT normal * Continue simvastatin 10mg PO at HS Time Spent With Patient Time with patient: Greater than 35 minutes Subjective Date/time seen: 12/29/2130 Interval history: Date/Time: 12/27/21 16:50 Narrative: This is a pleasant 61-year-old male with COPD, chronic respiratory failure on oxygen, hypertension, and hyperlipidemia who presented to the e mergency department earlier today via private vehicle from home with complaints of shortness of breath. He has historically been on 1 L however he has consistently been on 5 L nasal cannula since being hospitalized with COVID pneumonia in October 2021 at [facility] in [place]. He was hopeful that his lungs would improve enough that he would be able to back down his oxygen though unfortunately that is not the case and in fact he admits that at times he sees his SpO2 dropped into the low 80s though he believes that is due to the fact that he is having difficulties breathing out of his nose. Apparently he has
--- NOTE | 2021-12-29 09:30 | PM.IMPN ---
Progress Note: A&P Assessment and Plan (1) Acute and chronic respiratory failure with hypoxia: Code(s): J96.21 - Acute and chronic respiratory failure with hypoxia Status: Acute Assessment and Plan: Saturation in the ED was 76% Chronic oxygen of 5LNC at home post covid Reports inability to breathe nasally due to dry mucous membranes and congestion Humidity and ocean spray added CTA did not exhibit PE Consider ENT consult Was able to titrate to 2LNC with saturation >90% (2) Pulmonary infiltrates: Code(s): R91.8 - Other nonspecific abnormal finding of lung field Status: Acute Assessment and Plan: Could be residual COVID pneumonia or bacterial pneumonia Bacterial PNA unlikely, since he is afebrile and normal WBC CTA did also exhibit edema in the mild lower extremity swelling as well Chest xray Moderate amount of basilar airspace disease probably pneumonia or edema. Small left effusion. Sputum culture ordered and pending, showed normal growth One time dose of IV Lasix 40 mg resume p.o. Lasix, increase to 40mg PO daily Initiate pulmonary toilet, with IS and pep therapy (3) COPD exacerbation: Code(s): J44.1 - Chronic obstructive pulmonary disease with (acute) exacerbation Status: Acute Assessment and Plan: Reports increase in sputum with changes, increase oxygen demand, and increase wheezes CTA showed severe emphysema Methylprednisolone 60mg IV Q6hr, changed to 50mg PO daily Continue doxycycline scheduled bronchodilators Atrovent and albuterol Sputum culture normal ariel Supplemental oxygen, wean to maintain saturation >90% Guaifenesin Q12hr CPT QID (4) Hypertension: Code(s): I10 - Essential (primary) hypertension Status: Acute Assessment and Plan: Current BP 140/71 Continue home losartan 100mg PO Daily Trend BP Adjust therapy as indicated (5) CHF (congestive heart failure): Code(s): I50.9 - Heart failure, unspecified Status: Acute Assessment and Plan: Chest xray and CTA show pulmonary edema BNP 144 20mg PO lasix at home, increase to 40mg PO daily Daily weights Strict I&Os Echo from 03/2021 EF of >70% with grade 1 diastolic dysfunction Repeat echo EF of 60-65% with grade 1 diastolic dysfunction Trend urine output (6) Hyperlipidemia: Code(s): E78.5 - Hyperlipidemia, unspecified Status: Acute Assessment and Plan: LFT normal Continue simvastatin 10mg PO at HS Time Spent With Patient Time with patient: Greater than 35 minutes Subjective Date/time seen: 12/29/21 0930 Interval history: Date/Time: 12/27/21 16:50 Narrative: This is a pleasant 61-year-old male with COPD, chronic respiratory failure on oxygen, hypertension, and hyperlipidemia who presented to the emergency department earlier today via private vehicle from home with complaints of shortness of breath. He has historically been on 1 L however he has consistently been on 5 L nasal cannula since being hospitalized with COVID pneumonia in October 2021 at [facility] in [place]. He was hopeful that his lungs would improve enough that he would be able to back down his oxygen though unfortunately that is not the case and in fact he admits that at times he sees his SpO2 dropped into the low 80s though he believes that is due to the fact that he is having difficulties breathing out of his nose. Apparently he has ulcerations and swelling in the nostrils that he believes is due to the high-flow oxygen and dry air. 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 At the time my evaluation he has several coughing jags which she states is not necessarily unusual for him. His cough is rarely productive of hernandez colored phlegm though he feels as though there is a l
[2021-12-29] MEDS: DORNASE ALFA INH SOLN 1 MG/ML 2.5 ML AMP 2.5 MG INHALATION ×2 (09:36→19:41)
[2021-12-29] MEDS: FLUTICASONE/SALMETEROL 115-21 MCG INHALER 1 PUFF 2 PUFF INHALATION (09:36)
[2021-12-29] MEDS: ENOXAPARIN 40 MG/0.4 ML SYRINGE SUB-Q (09:37)
[2021-12-29] MEDS: LOSARTAN POTASSIUM 100 MG TABLET PO (09:37)
[2021-12-29] MEDS: FUROSEMIDE 40 MG TABLET PO (09:37)
[2021-12-29] MEDS: guaiFENesin 12 HR 600 MG TABCR 1200 MG PO ×2 (09:37→21:52)
--- NOTE | 2021-12-29 12:47 | ECG_ITS ---
Measurements Intervals [place] Rate: 112 P: 83 AL: 132 QRS: 42 QRSD: 97 T: 86 QT: 286 QTc: 391 Interpretive Statements SINUS TACHYCARDIA NONSPECIFIC ST & T-WAVE ABNORMALITY- DIFFUSE LEADS BASELINE ARTIFACT- I, II, III, AVR, AVL, AVF, V1-V6 ABNORMAL ECG Electronically Signed On 12-29-2021 15:56:41 [employer] by Kwame Mccullough D.O.
[2021-12-29] MEDS: ALPRAZolam (*CRX) 0.25 MG TABLET PO (17:00)
[2021-12-29] MEDS: MAGNESIUM 27 MG TABLET (500 MG MAG GLUCONATE) PO (21:54)
[2021-12-29] MEDS: SIMVASTATIN 10 MG TABLET PO (21:54)
[2021-12-30] VITALS (17 sets, daily range): BP systolic 138–140; BP diastolic 63–64; PULSE 90–101; RESP 18–20; TEMP 36.2–36.7; O2SAT 86–93
[2021-12-30] MEDS: IPRATROPIUM BR 0.02% INH SOLN 0.5 MG/2.5 ML VIAL INHALATION ×3 (02:07→14:20)
[2021-12-30] MEDS: DOXYCYCLINE 100 MG/NS 100 ML 100 MG/100 ML BAG IVPB (06:10)
[2021-12-30 06:57] LABS: Basophils Absolute Auto 0.1 K/mm3 (0.0-0.1); Basophils Percent Auto 0.4 % (0.2-1.2); Eosinophils Percent Auto 0.1 % (0-4.4); Hematocrit 38.2 % (42.0-52.0); Hemoglobin 12.4 g/dL (14.0-18.0); Immature Granulocyte Absolute 0.63 K/mm3 (0.00-0.031); Lymphocytes Absolute Auto 1.73 K/mm3 (0.9-3.2); Lymphocytes Percent Auto 10.9 % (18.3-44.2); Mean Corpuscular HGB Conc 32.5 g/dl (32-36); Mean Corpuscular Hemoglobin 30.2 pg (26-34); Mean Corpuscular Volume 93.2 fl (80-100); Mean Platelet Volume 10.3 fl (7.4-10.4); Monocytes Absolute Auto 1.8 K/mm3 (0.1-0.6); Monocytes Percent Auto 11.4 % (2.6-8.5); Neutrophils Absolute Auto 11.7 K/mm3 (1.3-6.7); Neutrophils Percent Auto 73.2 % (45.5-73.1); Nucleated Red Blood Cells Perc 0.1 % (0.0-0.2); Platelet Count Result 504 k/mm3 (150-375); Red Cell Distribution Width 14.3 % (11.5-14.5); White Blood Count 15.9 K/mm3 (4.5-10.0)
[2021-12-30 07:04] LABS: Alanine Aminotransferase 29 U/L (4-50); Albumin Level 3.8 g/dL (3.5-5.1); Alkaline Phosphatase 87 U/L (38-126); Anion Gap 10 mmol/L (8-16); Aspartate Amino Transferase 36 U/L (17-59); Bilirubin,Total 0.5 mg/dL (0.2-1.3); Blood Urea Nitrogen 24 mg/dL (9-20); Calcium 9.2 mg/dL (8.4-10.2); Carbon Dioxide 24 mmol/L (22-30); Chloride 98 mmol/L (98-107); Estimated CRCL calculation 77 ml/min; Estimated Glomerular Filt Rate > 60; Glucose 118 mg/dL (65-110); Magnesium 2.2 mg/dL (1.6-2.3); Potassium 4.2 mmol/L (3.4-5.0); Sodium 132 mmol/L (137-145)
[2021-12-30] MEDS: FLUTICASONE/SALMETEROL 115-21 MCG INHALER 1 PUFF 2 PUFF INHALATION (08:51)
[2021-12-30] MEDS: DORNASE ALFA INH SOLN 1 MG/ML 2.5 ML AMP 2.5 MG INHALATION (08:51)
[2021-12-30] MEDS: ENOXAPARIN 40 MG/0.4 ML SYRINGE SUB-Q (09:00)
[2021-12-30] MEDS: predniSONE 40 MG, predniSONE 10 MG 50 MG PO (09:00)
[2021-12-30] MEDS: LOSARTAN POTASSIUM 100 MG TABLET PO (09:01)
[2021-12-30] MEDS: FUROSEMIDE 40 MG TABLET PO (09:01)
[2021-12-30] MEDS: ERGOCALCIFEROL 50,000 UNIT CAPSULE 50000 UNITS BY MOUTH (09:01)
[2021-12-30] MEDS: guaiFENesin 12 HR 600 MG TABCR 1200 MG PO (09:01)
--- NOTE | 2021-12-30 11:00 | PCCCNOTE ---
On 12/30/21, the student, [Jennie Ernst], provided care and completed [facility] documentation on this patient. I have reviewed the student's documentation and agree with the findings.
--- NOTE | 2021-12-30 12:00 | P.DS_ITS ---
DS: Admitting Diagnosis Discharge Date 12/30/21 1200 Admitting Diagnosis Pneumonia/COPD exacerbation DS: Discharge Diagnosis Discharge Diagnosis (1) Acute and chronic respiratory failure with hypoxia: Code(s): J96.21 - Acute and chronic respiratory failure with hypoxia Status: Acute Assessment and Plan: * Saturation in the ED was 76% * Chronic oxygen of 5LNC at home post covid * Reports inability to breathe nasally due to dry mucous membranes and congestion * Humidity and ocean spray added * CTA did not exhibit PE * Consider ENT consult * Was able to titrate to 2LNC with saturation >90% * Awaiting home O2 eval (2) Pulmonary infiltrates: Code(s): R91.8 - Other nonspecific abnormal finding of lung field Status: Acute Assessment and Plan: * Could be residual COVID pneumonia or bacterial pneumonia * Bacterial PNA unlikely, since he is afebrile and normal WBC * CTA did also exhibit edema in the mild lower extremity swelling as well * Chest xray Moderate amount of basilar airspace disease probably pneumonia or edema. Small left effusion. * Sputum culture ordered and pending, showed normal growth * One time dose of IV Lasix 40 mg * resume p.o. Lasix, increase to 40mg PO daily * Initiate pulmonary toilet, with IS and pep therapy (3) COPD exacerbation: Code(s): J44.1 - Chronic obstructive pulmonary disease with (acute) exacerbation Status: Acute Assessment and Plan: * Reports increase in sputum with changes, increase oxygen demand, and increase wheezes * CTA showed severe emphysema * Methylprednisolone 60mg IV Q6hr, changed to 50mg PO daily * Continue doxycycline * scheduled bronchodilators Atrovent and albuterol * Sputum culture normal ariel * Supplemental oxygen, wean to maintain saturation >90% * Guaifenesin Q12hr * CPT QID (4) Hypertension: Code(s): I10 - Essential (primary) hypertension Status: Acute Assessment and Plan: * Current BP 140/71 * Continue home losartan 100mg PO Daily * Trend BP * Adjust therapy as indicated (5) CHF (congestive heart failure): Code(s): I50.9 - Heart failure, unspecified Status: Acute Assessment and Plan: * Chest xray and CTA show pulmonary edema * BNP 144 * 20mg PO lasix at home, increase to 40mg PO daily * Daily weights * Strict I&Os * Echo from 03/2021 EF of >70% with grade 1 diastolic dysfunction * Repeat echo EF of 60-65% with grade 1 diastolic dysfunction * Trend urine output (6) Hyperlipidemia: Code(s): E78.5 - Hyperlipidemia, unspecified Status: Acute Assessment and Plan: * LFT normal * Continue simvastatin 10mg PO at HS DS: Summary Hospital Course Hospital Course: Patient is 59-year-old male with his past medical history of COPD, chronic respiratory failure on oxygen, hypertension, hyperlipidemia presented the emergency room with complaints of shortness of breath. Patient had been on 5 L nasal cannula after being discharged with COVID October of 2021. 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 It was noted that he was satting in the low 80s at home and stated that he was having difficulty breathing and an out of his nose due to dry mucous membranes and scabbing. Chest x-ray showed moderate amount of basilar airspace disease probably pneumonia and edema. CTA showed edema. Sputum was ordered and showed normal growth. Patient was given p.r.n. Lasix and his Lasix has been i
--- NOTE | 2021-12-30 12:00 | PM.DS ---
DS: Admitting Diagnosis Discharge Date 12/30/21 1200 Admitting Diagnosis Pneumonia/COPD exacerbation DS: Discharge Diagnosis Discharge Diagnosis (1) Acute and chronic respiratory failure with hypoxia: Code(s): J96.21 - Acute and chronic respiratory failure with hypoxia Status: Acute Assessment and Plan: Saturation in the ED was 76% Chronic oxygen of 5LNC at home post covid Reports inability to breathe nasally due to dry mucous membranes and congestion Humidity and ocean spray added CTA did not exhibit PE Consider ENT consult Was able to titrate to 2LNC with saturation >90% Awaiting home O2 eval (2) Pulmonary infiltrates: Code(s): R91.8 - Other nonspecific abnormal finding of lung field Status: Acute Assessment and Plan: Could be residual COVID pneumonia or bacterial pneumonia Bacterial PNA unlikely, since he is afebrile and normal WBC CTA did also exhibit edema in the mild lower extremity swelling as well Chest xray Moderate amount of basilar airspace disease probably pneumonia or edema. Small left effusion. Sputum culture ordered and pending, showed normal growth One time dose of IV Lasix 40 mg resume p.o. Lasix, increase to 40mg PO daily Initiate pulmonary toilet, with IS and pep therapy (3) COPD exacerbation: Code(s): J44.1 - Chronic obstructive pulmonary disease with (acute) exacerbation Status: Acute Assessment and Plan: Reports increase in sputum with changes, increase oxygen demand, and increase wheezes CTA showed severe emphysema Methylprednisolone 60mg IV Q6hr, changed to 50mg PO daily Continue doxycycline scheduled bronchodilators Atrovent and albuterol Sputum culture normal ariel Supplemental oxygen, wean to maintain saturation >90% Guaifenesin Q12hr CPT QID (4) Hypertension: Code(s): I10 - Essential (primary) hypertension Status: Acute Assessment and Plan: Current BP 140/71 Continue home losartan 100mg PO Daily Trend BP Adjust therapy as indicated (5) CHF (congestive heart failure): Code(s): I50.9 - Heart failure, unspecified Status: Acute Assessment and Plan: Chest xray and CTA show pulmonary edema BNP 144 20mg PO lasix at home, increase to 40mg PO daily Daily weights Strict I&Os Echo from 03/2021 EF of >70% with grade 1 diastolic dysfunction Repeat echo EF of 60-65% with grade 1 diastolic dysfunction Trend urine output (6) Hyperlipidemia: Code(s): E78.5 - Hyperlipidemia, unspecified Status: Acute Assessment and Plan: LFT normal Continue simvastatin 10mg PO at HS DS: Summary Hospital Course Hospital Course: Patient is 59-year-old male with his past medical history of COPD, chronic respiratory failure on oxygen, hypertension, hyperlipidemia presented the emergency room with complaints of shortness of breath. Patient had been on 5 L nasal cannula after being discharged with COVID October of 2021. 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 It was noted that he was satting in the low 80s at home and stated that he was having difficulty breathing and an out of his nose due to dry mucous membranes and scabbing. Chest x-ray showed moderate amount of basilar airspace disease probably pneumonia and edema. CTA showed edema. Sputum was ordered and showed normal growth. Patient was given p.r.n. Lasix and his Lasix has been increased to 40 mg p.o.. Patient was also started on steroids at 60 mg IV q.6. Patient is currently on 50 mg p.o. daily. Supplemental oxygen has been weaned to maintain a saturation greater than 90%. Breathing treatments have also been ordered and given. He has been getting antibiotics IV doxycycline. He is feeling a lot better today. He is ready and stable for discharge. Lab values have remained stable. VS are also stable. Talked to the patient about needing to follow
--- NOTE | 2021-12-30 15:15 | HOMEO2EVAL ---
Evaluation was performed at [facility] Home Oxygen Evaluation RC: Home Oxygen (O2) Evaluation Start: 12/30/21 12:54 Freq: ONCE Status: Active Protocol: RPE Activity Type Activity Date Activity User E-Sign Co-Sign Detail Recorded Client Recorded Date Recorded By Document 12/30/21 14:50 RAY [email or web address] 12/30/21 15:15 RAY Document 12/30/21 14:51 RAY [email or web address] 12/30/21 15:15 RAY Document 12/30/21 14:53 RAY [email or web address] 12/30/21 15:15 RAY Document 12/30/21 14:54 RAY [email or web address] 12/30/21 15:15 RAY Document 12/30/21 14:55 RAY [email or web address] 12/30/21 15:15 RAY Document 12/30/21 14:56 RAY [email or web address] 12/30/21 15:15 RAY Document 12/30/21 15:00 RAY [email or web address] 12/30/21 15:15 RAY 12/30/21 12/30/21 12/30/21 14:50 14:51 14:53 Home O2 Evaluation Test Phase Resting Resting Exercise Oxygen Delivery Room Air Nasal Cannula Nasal Cannula Oxygen Flow Rate (L/min) 2 2 Pulse Oximetry (90-100 %) 86 L 91 86 L Home Oxygen Evaluation Comments Treatment Charges O2 Evaluation - Inpatient 12/30/21 12/30/21 12/30/21 14:54 14:55 14:56 Home O2 Evaluation Test Phase Exercise Exercise Exercise Oxygen Delivery Nasal Cannula Nasal Cannula Nasal Cannula Oxygen Flow Rate (L/min) 3 4 5 Pulse Oximetry (90-100 %) 87 L 87 L 89 L Home Oxygen Evaluation Comments PT REQUIRES 2 L REST AND 5 L WITH ACTIVITY Treatment Charges 12/30/21 15:00 Home O2 Evaluation Test Phase Resting Oxygen Delivery Nasal Cannula Oxygen Flow Rate (L/min) 2 Pulse Oximetry (90-100 %) 91 Home Oxygen Evaluation Comments Treatment Charges
--- NOTE | 2021-12-30 15:16 | PCRCNOTE ---
HOME O2 EVAL COMPLETE. RN NOTIFIED, PT HAS HOME O2 AND WILL BRING IN PORTABLE TANK UPON DISCHARGE FOR TRANSPORT.
== END 2021-12-30 16:00 | disposition home health service (06) | DRG 140 ==
LOC: ANHED 15:59 → ANH3MEDSUR 17:49
PROVIDERS: Physician Assistant; Admitting Provider Internal Medicine; Emergency Provider Emergency Medicine; PCP Internal Medicine; Visit Provider Nurse Practitioner
DX: J43.9 Emphysema, unspecified (principal); J96.21 Acute and chronic respiratory failure with hypoxia; J18.9 Pneumonia, unspecified organism; R91.8 Other nonspecific abnormal finding of lung field; R00.0 Tachycardia, unspecified; U09.9 Post COVID-19 condition, unspecified; R59.1 Generalized enlarged lymph nodes; I11.0 Hypertensive heart disease with heart failure; I50.31 Acute diastolic (congestive) heart failure; E78.5 Hyperlipidemia, unspecified; Z99.81 Dependence on supplemental oxygen; Z87.891 Personal history of nicotine dependence
CPT/HCPCS: 36415; 71045; 71275; 80053; 82948; 83735; 83880; 84145; 85025; 85027; 86140; 87070; 87205; 93005; 93306; 93971; 94618; 94640; 94667; 96361; 96365; 96366; 96372; 96375; 96376; 99285; A9270; G0378; J1100; J1650; J1940; J2930; J7120; J7512; Q9967